=== PATIENT | female | born 1970 | race Caucasian/White ===

== ENCOUNTER 2017-01-08 13:26 | Emergency (ER) | payer OTHER ==
[2017-01-08] MEDS ORDERED: Vistaril 50 MG/ML IM ONE ×2 (13:58→14:16)
[2017-01-08] MEDS ORDERED: TORAdol 30 mg Injection IM ONE (13:59)
--- NOTE | 2017-01-08 14:05 | ERPHSYRPT ---
- History of Present Illness Time Seen by Provider: 01/08/17 13:42 Source: patient Patient Subjective Stated Complaint: PT STATES THAT SHE HAS ARTHRITIS AND THAT SHE HAS BEEN HAVING INCREASED PAIN IN HER LEFT KNEE AND LOWER BACK. STATSE THAT SHE THINKS DUE TO THE PAIN HER BP HAS BEEN RUNNING HIGH THE PAST FEW DAYS. Triage Nursing Assessment: PT ALERT PINK WARM AND DRY RESP EASY NON LABORED SWELLING NOTED TO LEFT KNEE PT UNABLE TO BEAR WEIGHT ON LEFT KNEE. Physician History: CC: high blood pressure Hx: 47 y/o patient of Dr Meyers. She has been seeing Dr Rima De La Cruz and is switching to Dr Marti in January for chronic rheumatoid arthritis. She has HTN. Thinks she takes lisinopril 5mg BID as well as avapro. Her BP has been high. Some headaches, nonspecific. No chest pain. No N/T/W. BP was elevated 180/ 105 at noon so she came to ER. She is not out of any meds. Takes ultram for pain. Knee swelling and pains have been worse. No redness or fevers. Severity: moderate Allergies/Adverse Reactions: No Known Drug Allergies Allergy (Verified 08/18/16 13:40) Home Medications: Celecoxib 100 mg [celeBREX 100 MG] 100 mg PO BID 08/18/16 [History] Pregabalin 50 mg [Lyrica 50MG] 50 mg PO BID 08/18/16 [History] Clonidine HCl 0.1 mg [Catapres 0.1 MG] 0.2 mg BID 01/08/17 [History] Prednisone 20 mg [Deltasone 20 mg] 20 mg BID 01/08/17 [History] Hx Tetanus, Diphtheria Vaccination/Date Given: Yes Hx Influenza Vaccination/Date Given: Yes Hx Pneumococcal Vaccination/Date Given: No Immunizations Up to Date: Yes - Review of Systems Constitutional: No Fever, No Chills Eyes: No Symptoms, No Vision Changes Ears, Nose, & Throat: No Symptoms Respiratory: No Symptoms Cardiac: No Chest Pain Abdominal/Gastrointestinal: No Abdominal Pain, No Nausea, No Vomiting Genitourinary Symptoms: No Symptoms Musculoskeletal: No Symptoms, Joint Pain Skin: No Symptoms, No Rash Neurological: Headache (off and on), No Dizziness, No Focal Weakness, No Parasthesia All Other Systems: Reviewed and Negative - Past Medical History Pertinent Past Medical History: Yes Neurological History: Other ENT History: No Pertinent History Cardiac History: Hypertension Respiratory History: No Pertinent History Endocrine Medical History: No Pertinent History Musculoskeletal History: Rheumatoid Arthritis GI Medical History: Gallbladder Disease History: No Pertinent History Psycho-Social History: Anxiety, Depression Female Reproductive Disorders: Abnormal Uterine Bleeding Other Medical History: LEFT EPIDURAL HEMATOMA HX. RA - Past Surgical History Past Surgical History: Yes Neuro Surgical History: Other Cardiac: No Pertinent History Respiratory: No Pertinent History Gastrointestinal: Cholecystectomy Genitourinary: No Pertinent History Musculoskeletal: No Pertinent History Female Surgical History: Hysterectomy Other Surgical History: BRAIN SURGERY - Social History Smoking Status: Former smoker How long have you smoked: 10 YEARS Exposure to second hand smoke: Yes Alcohol Use: Socially Drug Use: none Patient Lives Alone: No Significant Family History: no pertinent family hx - Female History Hx Last Menstrual Period: HYSTERECTOMY Hx Now: No - Nursing Vital Signs Nursing Vital Signs: Initial Vital Signs Temperature 97.4 F Temperature Source Oral Pulse Rate 86 Respiratory Rate 16 Blood Pressure [Right Arm] 156/80 Pain Intensity 3 - Physical Exam General Appearance: alert Eye Exam: PERRL/EOMI Ears, Nose, Throat Exam: normal ENT inspection, moist mucous membranes Neck Exam: normal inspection, non-tender, supple Respiratory Exam: normal breath sounds, lungs clear Cardiovascular Exam: regular rate/rhythm Gastrointestinal/Abdomen Exam: soft, No tenderness, No distention Back Exam: normal inspection Extremity Exam: other (edema of legs and some swelling in knees worse on left) Neurologic Exam: alert, oriented x 3, cooperative, sensation nml, No motor deficits Skin Exam: warm, dry, No rash SpO2 Interpretation: normal SpO2: 99 Oxygen Delivery: Room Air - Course Nursing assessment & vital signs reviewed: Yes Ordered Tests: Active Orders 24 hr Category Date Time Status CBC W DIFF Stat Lab 01/08/17 14:09 Completed CMP Stat Lab 01/08/17 14:09 Completed Manual Differential NC Stat Lab 01/08/17 14:09 Completed Medication Summary Discontinued Medications Generic Name Dose Route Start Last Admin Trade Name Freq PRN Reason Stop Dose Admin Hydroxyzine HCl 50 mg 01/08/17 13:58 01/08/17 14:35 Vistaril 50 Mg/Ml IM 01/08/17 13:59 50 mg STAT ONE Administration Hydroxyzine HCl Confirm 01/08/17 14:16 Vistaril 50 Mg/Ml Administered 01/08/17 14:17 Dose 50 mg IM .STK-MED ONE Ketorolac Tromethamine 60 mg 01/08/17 13:59 01/08/17 14:26 Toradol 30 Mg Injection IM 01/08/17 14:00 60 mg STAT ONE Administration Ketorolac Tromethamine Confirm 01/08/17 14:16 Toradol 30 Mg Injection Administered 01/08/17 14:17 Dose 60 mg .ROUTE .STK-MED ONE Ketorolac Tromethamine Confirm 01/08/17 14:18 Toradol 30 Mg Injection Administered 01/08/17 14:19 Dose 60 mg .ROUTE .STK-MED ONE Lab/Rad Data: Laboratory Result Diagrams 01/08/17 14:09 01/08/17 14:09 Laboratory Results 01/08/17 01/08/17 Range/Units 14:09 14:09 WBC 11.4 H (4.0-10.5) K/mm3 RBC 4.05 L (4.1-5.4) M/mm3 Hgb 11.3 L (12.0-16.0) gm/dl Hct 36.2 (35-47) % MCV 89.4 (78-100) fl MCH 27.9 (26-32) pg MCHC 31.2 L (32-36) g/dl RDW 15.3 H (11.5-14.0) % Plt Count 243 (150-450) K/mm3 MPV 10.3 H (6-9.5) fl Segmented Neutrophils 85 H (36.0-66.0) % Lymphocytes (Manual) 9 L (24-44) % Monocytes (Manual) 6 (0.0-12.0) % Platelet Estimate NORMAL (NORMAL) Poikilocytosis 1+ Anisocytosis 1+ Sodium 143 (136-145) mEq/L Potassium 4.3 (3.5-5.1) mEq/L Chloride 103 (98-107) mEq/L Carbon Dioxide 28.8 (21-32) mEq/L Anion Gap 15.0 (5-15) MEQ/L BUN 11 (9-20) mg/dL Creatinine 0.84 (0.55-1.30) mg/dl Estimated GFR > 60 ML/MIN Glucose 145 H (70-110) MG/DL Calcium 9.3 (8.5-10.1) mg/dL Total Bilirubin 1.2 H (0.2-1.0) mg/dL AST 9 L (15-37) U/L ALT 18 (12-78) U/L Alkaline Phosphatase 97 (46-116) U/L Serum Total Protein 7.6 (6.4-8.2) gm/dL Albumin 2.9 L (3.4-5.0) g/dL - Progress Progress Note: 01/08/17 15:08 BP improved. Her pain is improved. Advised double dose of lisinopril and follow up with Dr Meyers. Counseled pt/family regarding: diagnosis, need for follow-up - Departure Time of Disposition: 15:09 Departure Disposition: Home Clinical Impression: Hypertension, Rheumatoid arthritis Condition: Stable Critical Care Time: No Referrals: ELIAS MEYERS [Primary Care Provider] - Instructions: Rheumatoid Arthritis, High Blood Pressure Additional Instructions: Double dose of lisinopril. Take your ultram as already prescribed for pain. Follow up this or next week with Dr Meyers. Check Blood Pressure tiwce a day and record in a book.
[2017-01-08] MEDS ORDERED: TORAdol 30 mg Injection ONE ×2 (14:16→14:18)
[2017-01-08 14:21] LABS: Mean Cell Volume 89.4 fl (78-100); Mean Corpuscular Hemoglobin 27.9 pg (26-32); Mean Platelet Volume 10.3 fl (6-9.5); Platelet Count 243 K/mm3 (150-450); Red Blood Count 4.05 M/mm3 (4.1-5.4); Red Cell Distribution Width 15.3 % (11.5-14.0); White Blood Count 11.4 K/mm3 (4.0-10.5)
[2017-01-08 14:30] LABS: ALBUMIN 2.9 g/dL (3.4-5.0); ALKALINE PHOSPHATASE 97 U/L (46-116); BILIRUBIN,TOTAL 1.2 mg/dL (0.2-1.0); BLOOD UREA NITROGEN 11 mg/dL (9-20); CHLORIDE 103 mEq/L (98-107); Carbon Dioxide 28.8 mEq/L (21-32); Glucose 145 MG/DL (70-110); Potassium 4.3 mEq/L (3.5-5.1); SGOT/AST 9 U/L (15-37); SGPT/ALT 18 U/L (12-78); SODIUM 143 mEq/L (136-145); Total Protein 7.6 gm/dL (6.4-8.2)
[2017-01-08 14:54] LABS: Total Cells Counted 100
[2017-01-08 14:55] LABS: ANISOCYTOSIS 1+; Platelet Estimate NORMAL (NORMAL); Poikilocytosis 1+
[2017-01-08 15:13] VITALS: O2SAT 99
[2017-01-08 15:33] VITALS: BP 186/97; PULSE 91
== END 2017-01-08 15:32 | disposition home or self-care (01) ==
LOC: ED 13:26
DX: I10 Essential (primary) hypertension (principal); M06.9 Rheumatoid arthritis, unspecified; R51 Headache; M25.562 Pain in left knee; M54.5 Low back pain; Z79.899 Other long term (current) drug therapy
CPT/HCPCS: 36415; 80053; 85025; 96372; 99283; 99284; J1885; J3410

== ENCOUNTER 2018-10-20 10:55 | Emergency (ER) | payer OTHER ==
--- NOTE | 2018-10-20 11:23 | ERPHSYRPT ---
- History of Present Illness Time Seen by Provider: 10/20/18 11:12 Source: patient Exam Limitations: no limitations Patient Subjective Stated Complaint: Pt states "I used to have high blood pressure but they took me off my meds awhile ago and I have been fine but about 2 days ago my pressure started to go up and I took a couple of my mothers blood pressure pills to see if that would help but it has not." Triage Nursing Assessment: Pt alert and oriented X 3, skin pwd. Pt ambulates with a walker, able to speak in clear full sentences. PT in no apparent respiratory distress. Physician History: The patient is a 48-year-old female with a history of rheumatoid arthritis and hypertension complaining of elevated blood pressure for the past 3 days. Her blood pressures have been greater than 200/100 for 3 days. She used to take metoprolol and lisinopril for blood pressure but has not needed it for the past 3 years. She took some of her mother's blood pressure medicine in attempt to reduce her blood pressure. She has had some pain in her joints due to the rheumatoid arthritis recently. She states she has survey pulsating headache in the back of her head. Her past medical history is significant for hypertension and rheumatoid arthritis. Timing/Duration: day(s) (3), constant Severity: moderate Modifying Factors: Improves With: medication Associated Symptoms: headaches Allergies/Adverse Reactions: No Known Drug Allergies Allergy (Verified 08/18/16 13:40) Home Medications: Oxycodone / APAP 10/325 mg [Oxycodone-Acetaminophen 10-325] 1 tab PO DAILY PRN 10/20/18 [History] Prednisone 10 mg [Deltasone 10 mg] 10 mg PO DAILY 10/20/18 [History] Hx Tetanus, Diphtheria Vaccination/Date Given: Yes Hx Influenza Vaccination/Date Given: No Hx Pneumococcal Vaccination/Date Given: No Immunizations Up to Date: Yes - Review of Systems Constitutional: No Fever, No Chills Eyes: No Symptoms Ears, Nose, & Throat: No Symptoms Respiratory: No Cough, No Dyspnea Cardiac: No Chest Pain, No Edema, No Syncope Abdominal/Gastrointestinal: No Abdominal Pain, No Nausea, No Vomiting, No Diarrhea Genitourinary Symptoms: No Dysuria Musculoskeletal: Arthralgias Skin: No Rash Neurological: Headache Psychological: No Symptoms Endocrine: No Symptoms Hematologic/Lymphatic: No Symptoms Immunological/Allergic: No Symptoms All Other Systems: Reviewed and Negative - Past Medical History Pertinent Past Medical History: Yes Neurological History: Other ENT History: No Pertinent History Cardiac History: Hypertension Respiratory History: No Pertinent History Endocrine Medical History: No Pertinent History Musculoskeletal History: Rheumatoid Arthritis GI Medical History: Gallbladder Disease History: No Pertinent History Psycho-Social History: Anxiety, Depression Female Reproductive Disorders: Abnormal Uterine Bleeding Other Medical History: LEFT EPIDURAL HEMATOMA HX. RA - Past Surgical History Past Surgical History: Yes Neuro Surgical History: Other Cardiac: No Pertinent History Respiratory: No Pertinent History Gastrointestinal: Cholecystectomy Genitourinary: No Pertinent History Musculoskeletal: No Pertinent History Female Surgical History: Hysterectomy Other Surgical History: BRAIN SURGERY - Social History Smoking Status: Current every day smoker How long have you smoked: years Exposure to second hand smoke: Yes Alcohol Use: Socially Drug Use: none Patient Lives Alone: No Significant Family History: no pertinent family hx - Female History Hx Last Menstrual Period: hysterectomy Hx Now: No - Nursing Vital Signs Nursing Vital Signs: Initial Vital Signs Temperature 98.2 F 10/20/18 11:01 Pulse Rate 84 10/20/18 11:01 Respiratory Rate 16 10/20/18 11:01 Blood Pressure 166/106 10/20/18 11:01 O2 Sat by Pulse Oximetry 96 10/20/18 11:01 Pain Scale Pain Intensity 5 - Physical Exam General Appearance: no apparent distress, alert Eye Exam: PERRL/EOMI, eyes nml inspection Ears, Nose, Throat Exam: normal ENT inspection, TMs normal, pharynx normal, moist mucous membranes Neck Exam: normal inspection, non-tender, supple, full range of motion Respiratory Exam: normal breath sounds, lungs clear, No respiratory distress Cardiovascular Exam: regular rate/rhythm, normal heart sounds, normal peripheral pulses Gastrointestinal/Abdomen Exam: soft, normal bowel sounds, No tenderness, No mass Pelvic Exam: not done Rectal Exam: not done Back Exam: normal inspection, normal range of motion, No CVA tenderness, No vertebral tenderness Extremity Exam: normal inspection, normal range of motion, pelvis stable Neurologic Exam: alert, oriented x 3, cooperative, normal mood/affect, nml cerebellar function, nml station & gait, sensation nml, No motor deficits Skin Exam: normal color, warm, dry, No rash Lymphatic Exam: No adenopathy SpO2 Interpretation: normal SpO2: 96 Oxygen Delivery: Room Air - Course EKG Interpreted by Me: RATE, Sinus Rhythm, NORMAL AXIS, NORMAL INTERVALS, NORMAL QRS - Radiology Exams Chest X-ray Interpretation: Reviewed by me, Teleradiologist Report (per Dr Yo), Negative, Other (new lingula subsegmental atelectasis/scarring, no focal infiltrate or consolidation.) - CT Exams Head CT Interpretation: Tele-radiologist Report (Per Dr Yo), Other (no acute; stable left craniotomy; incidental paranasal sinus disease) Ordered Tests: Active Orders 24 hr Category Date Time Status Clean Catch Urine Specimen STAT Care 10/20/18 11:33 Active EKG-ER Only STAT Care 10/20/18 11:33 Active IV Insertion STAT Care 10/20/18 11:33 Active CHEST 2 VIEWS (PA AND LAT) Stat Exams 10/20/18 11:34 Completed HEAD WITHOUT CONTRAST [CT] Stat Exams 10/20/18 11:35 Completed CBC W DIFF Stat Lab 10/20/18 11:50 Completed CMP Stat Lab 10/20/18 11:50 Completed CULTURE,URINE Stat Lab 10/20/18 12:05 Received Manual Differential NC Stat Lab 10/20/18 11:50 Completed TROPONIN Q3H Lab 10/20/18 11:50 Completed TROPONIN Q3H Lab 10/20/18 14:45 Ordered TROPONIN Q3H Lab 10/20/18 17:45 Ordered TROPONIN Q3H Lab 10/20/18 20:45 Ordered TROPONIN Q3H Lab 10/20/18 23:45 Ordered UA W/RFX UR CULTURE Stat Lab 10/20/18 12:05 Completed Urine Triage Profile Stat Lab 10/20/18 12:05 Completed Medication Summary Discontinued Medications Generic Name Dose Route Start Last Admin Trade Name Freq PRN Reason Stop Dose Admin Labetalol HCl 10 mg 10/20/18 11:35 10/20/18 11:58 Trandate 20 Mg/5 Ml Syringe IV 10/20/18 11:36 10 mg STAT ONE Administration Labetalol HCl Confirm 10/20/18 11:58 Trandate 20 Mg/5 Ml Syringe Administered 10/20/18 11:59 Dose 20 mg IV .STK-MED ONE Morphine Sulfate 4 mg 10/20/18 12:32 10/20/18 12:38 Morphine Sulfate 4 Mg Inj IV 10/20/18 12:33 4 mg STAT ONE Administration Morphine Sulfate Confirm 10/20/18 12:37 Morphine Sulfate 4 Mg Inj Administered 10/20/18 12:38 Dose 4 mg .ROUTE .STK-MED ONE Ondansetron HCl 4 mg 10/20/18 12:32 10/20/18 12:38 Zofran 4 Mg/2 Ml Vial IV 10/20/18 12:33 4 mg STAT ONE Administration Ondansetron HCl Confirm 10/20/18 12:37 Zofran 4 Mg/2 Ml Vial Administered 10/20/18 12:38 Dose 4 mg .ROUTE .STK-MED ONE Potassium Chloride 10 meq 10/20/18 13:00 Klor Con 10 Meq PO 10/20/18 13:01 STAT ONE Lab/Rad Data: Laboratory Result Diagrams 10/20/18 11:50 10/20/18 11:50 Laboratory Results 10/20/18 10/20/18 10/20/18 Range/Units 12:05 12:05 11:50 WBC (4.0-10.5) K/mm3 RBC (4.1-5.4) M/mm3 Hgb (12.0-16.0) gm/dl Hct (35-47) % MCV (78-100) fl MCH (26-32) pg MCHC (32-36) g/dl RDW (11.5-14.0) % Plt Count (150-450) K/mm3 MPV (6-9.5) fl Sodium (137-145) mmol/L Potassium (3.5-5.1) mmol/L Chloride (98-107) mmol/L Carbon Dioxide (22-30) mmol/L Anion Gap (5-15) MEQ/L BUN (7-17) mg/dL Creatinine (0.52-1.04) mg/dL Estimated GFR ML/MIN Glucose (74-106) mg/dL Calcium (8.4-10.2) mg/dL Total Bilirubin (0.2-1.3) mg/dL AST (14-36) U/L ALT (0-35) U/L Alkaline Phosphatase (38-126) U/L Troponin I < 0.012 (0.000-0.034) ng/mL Serum Total Protein (6.3-8.2) g/dL Albumin (3.5-5.0) g/dL Urine Color YELLOW (YELLOW) Urine Appearance SLIGHTLY CLOUDY (CLEAR) Urine pH 5.0 (5-6) Ur Specific [place] 1.011 (1.005-1.025) Urine Protein NEGATIVE (Negative) Urine Ketones NEGATIVE (NEGATIVE) Urine Blood SMALL (0-5) Bon/ul Urine Nitrite NEGATIVE (NEGATIVE) Urine Bilirubin NEGATIVE (NEGATIVE) Urine Urobilinogen NEGATIVE (0-1) mg/dL Ur Leukocyte Esterase NEGATIVE (NEGATIVE) Urine WBC (Auto) 6-10 (0-5) /HPF Urine RBC (Auto) 3-5 (0-2) /HPF U Hyaline Cast (Auto) 0-2 (0-2) /LPF U Epithel Cells (Auto) RARE (FEW) /HPF Urine Bacteria (Auto) NONE (NEGATIVE) /HPF Urine Mucus (Auto) SLIGHT (NEGATIVE) /HPF Urine Culture Reflexed YES (NO) Urine Glucose NEGATIVE (NEGATIVE) mg/dL Urine Opiates Level NEGATIVE (NEGATIVE) Ur Methadone NEGATIVE (NEGATIVE) Urine Barbiturates NEGATIVE (NEGATIVE) Ur Phencyclidine (PCP) NEGATIVE (NEGATIVE) Urine Amphetamine NEGATIVE (NEGATIVE) U Benzodiazepine Level NEGATIVE (NEGATIVE) Urine Cocaine NEGATIVE (NEGATIVE) Urine Marijuana (THC) NEGATIVE (NEGATIVE) 10/20/18 10/20/18 Range/Units 11:50 11:50 WBC 16.0 H (4.0-10.5) K/mm3 RBC 4.78 (4.1-5.4) M/mm3 Hgb 13.8 (12.0-16.0) gm/dl Hct 42.4 (35-47) % MCV 88.7 (78-100) fl MCH 28.9 (26-32) pg MCHC 32.5 (32-36) g/dl RDW 14.8 H (11.5-14.0) % Plt Count 253 (150-450) K/mm3 MPV 9.9 H (6-9.5) fl Sodium 141 (137-145) mmol/L Potassium 3.4 L (3.5-5.1) mmol/L Chloride 102 (98-107) mmol/L Carbon Dioxide 26 (22-30) mmol/L Anion Gap 16.6 H (5-15) MEQ/L BUN 17 (7-17) mg/dL Creatinine 0.83 (0.52-1.04) mg/dL Estimated GFR > 60.0 ML/MIN Glucose 183 H (74-106) mg/dL Calcium 9.7 (8.4-10.2) mg/dL Total Bilirubin 1.10 (0.2-1.3) mg/dL AST 15 (14-36) U/L ALT 24 (0-35) U/L Alkaline Phosphatase 108 (38-126) U/L Troponin I (0.000-0.034) ng/mL Serum Total Protein 7.7 (6.3-8.2) g/dL Albumin 4.5 (3.5-5.0) g/dL Urine Color (YELLOW) Urine Appearance (CLEAR) Urine pH (5-6) Ur Specific [place] (1.005-1.025) Urine Protein (Negative) Urine Ketones (NEGATIVE) Urine Blood (0-5) Bon/ul Urine Nitrite (NEGATIVE) Urine Bilirubin (NEGATIVE) Urine Urobilinogen (0-1) mg/dL Ur Leukocyte Esterase (NEGATIVE) Urine WBC (Auto) (0-5) /HPF Urine RBC (Auto) (0-2) /HPF U Hyaline Cast (Auto) (0-2) /LPF U Epithel Cells (Auto) (FEW) /HPF Urine Bacteria (Auto) (NEGATIVE) /HPF Urine Mucus (Auto) (NEGATIVE) /HPF Urine Culture Reflexed (NO) Urine Glucose (NEGATIVE) mg/dL Urine Opiates Level (NEGATIVE) Ur Methadone (NEGATIVE) Urine Barbiturates (NEGATIVE) Ur Phencyclidine (PCP) (NEGATIVE) Urine Amphetamine (NEGATIVE) U Benzodiazepine Level (NEGATIVE) Urine Cocaine (NEGATIVE) Urine Marijuana (THC) (NEGATIVE) - Progress Progress: improved Progress Note: 10/20/18 13:09 Pt given labetalol, MSO4, and zofran. Feels better. 10/20/18 13:10 Elevated WBC due to pt taking prednisone. Counseled pt/family regarding: lab results, diagnosis, need for follow-up, rad results - Departure Time of Disposition: 13:09 Departure Disposition: Home Clinical Impression: HTN (hypertension), Hypokalemia Condition: Stable Critical Care Time: No Referrals: YARELIS CAMPOS MD [Primary Care Provider] - Additional Instructions: You have high blood pressure and mildly low serum potassium. You were given labetalol 20 mg, morphine 4 mg, and Zofran 4 mg by IV. You were also given potassium 10 mEq orally in the ER. Take metoprolol 25 mg 2 times a day. Follow -up with your primary medical doctor next week. Prescriptions: Metoprolol Tartrate 25 mg [Lopressor 25MG Tab] 25 mg PO BID #14 tab
[2018-10-20] MEDS ORDERED: TRANDATE 20 MG/5 ML SYRINGE IV ONE ×2 (11:35→11:58)
[2018-10-20 12:00] LABS: Hematocrit 42.4 % (35-47); Hemoglobin 13.8 gm/dl (12.0-16.0); Mean Cell Volume 88.7 fl (78-100); Mean Corpuscular Hemoglobin 28.9 pg (26-32); Mean Corpuscular Hgb Concent. 32.5 g/dl (32-36); Mean Platelet Volume 9.9 fl (6-9.5); Platelet Count 253 K/mm3 (150-450); Red Blood Count 4.78 M/mm3 (4.1-5.4); Red Cell Distribution Width 14.8 % (11.5-14.0)
[2018-10-20 12:19] LABS: ALBUMIN 4.5 g/dL (3.5-5.0); ALKALINE PHOSPHATASE 108 U/L (38-126); ANION GAP 16.6 MEQ/L (5-15); BLOOD UREA NITROGEN 17 mg/dL (7-17); CHLORIDE 102 mmol/L (98-107); Calcium 9.7 mg/dL (8.4-10.2); Carbon Dioxide 26 mmol/L (22-30); Creatinine 1 0.83 mg/dL (0.52-1.04); Glucose 183 mg/dL (74-106); Potassium 3.4 mmol/L (3.5-5.1); SGOT/AST 15 U/L (14-36); SGPT/ALT 24 U/L (0-35); SODIUM 141 mmol/L (137-145); Total Protein 7.7 g/dL (6.3-8.2)
--- NOTE | 2018-10-20 12:31 | XRAY ---
Indication: High blood pressure. Multiple contiguous axial images obtained through the head without contrast. Comparison: April 19, 2014. Stable left temporal parietal craniotomy. There is now minimal periventricular degenerative micro-ischemia seen bilaterally. Again no acute intracranial hemorrhage, abnormal extra-axial fluid collection, or mass effect. Fourth ventricle is midline without hydrocephalus. Ruby-white matter differentiation preserved. Remaining bony calvarium intact. There is again moderate mucosal thickening of both ethmoid and lesser degree both maxillary sinuses. Mastoid air cells are clear. Impression: Stable left craniotomy. Minimal periventricular degenerative micro-ischemia. No acute intracranial abnormalities. Incidental paranasal sinus disease. CT DI 70.48
[2018-10-20 12:32] LABS: Appearance SLIGHTLY CLOUDY (CLEAR); Bilirubin NEGATIVE (NEGATIVE); Blood SMALL Ery/ul (0-5); Glucose NEGATIVE (NEGATIVE); Ketones NEGATIVE (NEGATIVE); Leukocyte Esterase NEGATIVE (NEGATIVE); Nitrite NEGATIVE (NEGATIVE); Protein,Urine Dip NEGATIVE (Negative); Specific Gravity 1.011 (1.005-1.025); Urobilinogen NEGATIVE mg/dL (0-1)
[2018-10-20] MEDS ORDERED: MORPHINE SULFATE 4 MG INJ IV ONE (12:32)
[2018-10-20] MEDS ORDERED: Zofran 4 MG/2 ML VIAL IV ONE (12:32)
--- NOTE | 2018-10-20 12:35 | XRAY ---
Indication: Hypertension. Comparison: December 16, 2012. PA/lateral chest demonstrates new lingula subsegmental atelectasis/scarring and a few right lung calcified granulomas. No focal infiltrate, consolidation, or large effusion. Heart and mediastinal structures within normal limits. Bony thorax intact with minimal degenerative changes. Impression: Nonacute chest with chronic features.
[2018-10-20] MEDS ORDERED: MORPHINE SULFATE 4 MG INJ ONE (12:37)
[2018-10-20] MEDS ORDERED: Zofran 4 MG/2 ML VIAL ONE (12:37)
[2018-10-20 12:43] LABS: Amphetamine,Urine NEGATIVE (NEGATIVE); Barbiturate,Urine NEGATIVE (NEGATIVE); Benzodiazepine,Urine NEGATIVE (NEGATIVE); Cocaine,Urine NEGATIVE (NEGATIVE); Methadone,Urine NEGATIVE (NEGATIVE); Opiate,Urine NEGATIVE (NEGATIVE); PCP,Urine NEGATIVE (NEGATIVE); THC,Urine NEGATIVE (NEGATIVE)
[2018-10-20] MEDS ORDERED: Klor Con 10 MEQ PO ONE ×2 (13:00→13:18)
[2018-10-20 13:20] VITALS: BP 160/97; PULSE 75; O2SAT 94
[2018-10-20 13:43] LABS: Eosinophil 2 % (0.00-3.0); Lymphocytes 12 % (24-44); Monocyte 3 % (0.0-12.0); Neutrophils 83 % (36.0-66.0); Platelet Estimate NORMAL (NORMAL); Total Cells Counted 100; Toxic Granulation 1+
== END 2018-10-20 13:32 | disposition home or self-care (01) ==
LOC: ED 10:55
DX: I10 Essential (primary) hypertension (principal); E87.6 Hypokalemia; R51 Headache; Z79.899 Other long term (current) drug therapy; Z87.39 Personal history of other diseases of the musculoskeletal system and connective tissue
CPT/HCPCS: 36000; 36415; 70450; 71046; 80053; 80307; 81001; 84484; 85025; 87086; 93005; 93041; 96374; 96375; 99284; J2270; J2405; A9270-GY

== ENCOUNTER 2018-11-29 12:30 | Emergency (ER) | payer OTHER ==
--- NOTE | 2018-11-29 14:05 | ERPHSYRPT ---
- History of Present Illness Time Seen by Provider: 11/29/18 14:00 Source: patient Exam Limitations: no limitations Patient Subjective Stated Complaint: Has rhuematoid arthritis in her left knee but it has hurt more for the past 4 days Triage Nursing Assessment: Pt c/o of left knee pain, hx of rhuematoid arthritis and pain is more severe, non weight bearing, BP 183/98, hips to be replaced in future and then the knees, denies any other problems at this time Physician History: The patient is a 48-year-old female with a history of rheumatoid arthritis complaining of severe left knee pain and swelling that began about one week ago. She denies any trauma. The rheumatoid arthritis tends to affect her left knee more than her right. Her knee has been very warm as well. She is on 20 mg prednisone daily. She has tried ice and ibuprofen without relief. She is unable to walk on it due to severe pain. She was hospitalized 3 years ago for same complaint for IV steroids. Her past medical history is significant for rheumatoid arthritis, hypertension. 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 Method of Injury: unknown Occurred: last week Quality: sharpness Severity of Pain-Max: severe Severity of Pain-Current: severe Lower Extremities Pain: knee: left Modifying Factors: Improves With: pain medication Associated Symptoms: unable to bear weight Allergies/Adverse Reactions: No Known Drug Allergies Allergy (Verified 11/29/18 12:59) Home Medications: Amlodipine Besylate 5 mg PO DAILY 11/29/18 [History] Metoprolol Tartrate 25 mg [Lopressor 25MG Tab] 75 mg PO BID 11/29/18 [ History] Hx Tetanus, Diphtheria Vaccination/Date Given: Yes Hx Influenza Vaccination/Date Given: No Hx Pneumococcal Vaccination/Date Given: No - Review of Systems Constitutional: No Fever, No Chills Eyes: No Symptoms Ears, Nose, & Throat: No Symptoms Respiratory: No Cough, No Dyspnea Cardiac: No Chest Pain, No Edema, No Syncope Abdominal/Gastrointestinal: No Abdominal Pain, No Nausea, No Vomiting, No Diarrhea Genitourinary Symptoms: No Dysuria Musculoskeletal: Joint Pain, Joint Swelling Skin: No Rash Neurological: No Dizziness, No Focal Weakness, No Sensory Changes Psychological: No Symptoms Endocrine: No Symptoms Hematologic/Lymphatic: No Symptoms Immunological/Allergic: No Symptoms All Other Systems: Reviewed and Negative - Past Medical History Pertinent Past Medical History: Yes Neurological History: Other ENT History: No Pertinent History Cardiac History: Hypertension Respiratory History: No Pertinent History Endocrine Medical History: No Pertinent History Musculoskeletal History: Osteoporosis, Rheumatoid Arthritis GI Medical History: Gallbladder Disease History: No Pertinent History Psycho-Social History: Anxiety, Depression Female Reproductive Disorders: Abnormal Uterine Bleeding Other Medical History: LEFT EPIDURAL HEMATOMA HX. RA - Past Surgical History Past Surgical History: Yes Neuro Surgical History: Other Cardiac: No Pertinent History Respiratory: No Pertinent History Gastrointestinal: Cholecystectomy Genitourinary: No Pertinent History Musculoskeletal: No Pertinent History Female Surgical History: Hysterectomy Other Surgical History: BRAIN SURGERY - Social History Smoking Status: Current some day smoker How long have you smoked: years Exposure to second hand smoke: No Alcohol Use: Socially Drug Use: none Patient Lives Alone: No Significant Family History: no pertinent family hx - Female History Hx Now: No (hysterectomy) - Nursing Vital Signs Nursing Vital Signs: Initial Vital Signs Temperature 97.9 F 11/29/18 12:49 Pulse Rate 89 11/29/18 12:49 Blood Pressure 183/98 11/29/18 12:49 O2 Sat by Pulse Oximetry 95 11/29/18 12:49 Pain Scale Pain Intensity 4 - Physical Exam General Appearance: mild distress Eyes, Ears, Nose, Throat Exam: moist mucous membranes Neck Exam: non-tender, supple Cardiovascular/Respiratory Exam: chest non-tender, normal breath sounds, regular rate/rhythm, no respiratory distress Gastrointestinal/Abdominal Exam: non-tender, guarding Back Exam: normal inspection, No vertebral tenderness Hips Exam: bilateral: normal inspection Legs Exam: bilateral leg: normal inspection Knees Exam: right knee: normal inspection, left knee: joint effusion, pain, soft tissue tenderness, swelling, other (warmth) Ankle Exam: bilateral ankle: normal inspection Foot Exam: bilateral foot: normal inspection Neuro/Tendon Exam: normal sensation, normal motor functions Mental Status Exam: alert, oriented x 3, cooperative Skin Exam: normal color, warm, dry SpO2 Interpretation: normal SpO2: 95 Oxygen Delivery: Room Air - Radiology Exams Left Knee X-ray Interpretation: Reviewed by me, Teleradiologist Report (Per Dr Yo), Other (worsening severe degenerative arthritis; suprapatellar effusion ) Ordered Tests: Active Orders 24 hr Category Date Time Status IV Insertion STAT Care 11/29/18 14:11 Active Regular Diet Diet 11/30/18 Breakfast Active KNEE (3 VIEWS) Stat Exams 11/29/18 13:55 Completed BLOOD CULTURE Stat Lab 11/29/18 14:24 Received BMP Stat Lab 11/29/18 14:24 Completed CBC W DIFF Stat Lab 11/29/18 14:11 Completed Lactic Acid Stat Lab 11/29/18 15:08 Completed Uric Acid Stat Lab 11/29/18 14:24 Completed Medication Summary Discontinued Medications Generic Name Dose Route Start Last Admin Trade Name Oniel PRN Reason Stop Dose Admin Hydromorphone HCl 1 mg 11/29/18 14:11 11/29/18 14:33 Hydromorphone 1 Mg/Ml Ampule IV 11/29/18 14:12 1 mg STAT ONE Administration Hydromorphone HCl Confirm 11/29/18 14:28 Hydromorphone 1 Mg/Ml Ampule Administered 11/29/18 14:29 Dose 1 mg .ROUTE .STK-MED ONE Sodium Chloride 1,000 mls @ 999 mls/hr 11/29/18 14:11 11/29/18 16:56 Sodium Chloride 0.9% 1000 Ml IV 11/29/18 15:11 Infused .Q1H1M STA Infusion Sodium Chloride Confirm 11/29/18 14:28 Sodium Chloride 0.9% 1000 Ml Administered 11/29/18 14:29 Dose 1,000 mls @ ud .ROUTE .STK-MED ONE Ketorolac Tromethamine 30 mg 11/29/18 14:11 11/29/18 14:33 Toradol 30 Mg Injection IV 11/29/18 14:12 30 mg STAT ONE Administration Ketorolac Tromethamine Confirm 11/29/18 14:28 Toradol 30 Mg Injection Administered 11/29/18 14:29 Dose 30 mg .ROUTE .STK-MED ONE Ondansetron HCl 4 mg 11/29/18 14:11 11/29/18 14:33 Zofran 4 Mg/2 Ml Vial IV 11/29/18 14:12 4 mg STAT ONE Administration Ondansetron HCl Confirm 11/29/18 14:28 Zofran 4 Mg/2 Ml Vial Administered 11/29/18 14:29 Dose 4 mg .ROUTE .STK-MED ONE Lab/Rad Data: Laboratory Result Diagrams 11/29/18 14:11 11/29/18 14:24 Laboratory Results 11/29/18 11/29/18 11/29/18 Range/Units 15:08 14:24 14:24 WBC (4.0-10.5) K/mm3 RBC (4.1-5.4) M/mm3 Hgb (12.0-16.0) gm/dl Hct (35-47) % MCV (78-100) fl MCH (26-32) pg MCHC (32-36) g/dl RDW (11.5-14.0) % Plt Count (150-450) K/mm3 MPV (6-9.5) fl Gran % (36.0-66.0) % Eos # (Auto) (0-0.5) Absolute Lymphs (auto) (1.0-4.6) Absolute Monos (auto) (0.0-1.3) Lymphocytes % (24.0-44.0) % Monocytes % (0.0-12.0) % Eosinophils % (0.00-5.0) % Basophils % (0.0-0.4) % Absolute Granulocytes (1.4-6.9) Basophils # (0-0.4) Sodium 143 (137-145) mmol/L Potassium 4.0 (3.5-5.1) mmol/L Chloride 105 (98-107) mmol/L Carbon Dioxide 28 (22-30) mmol/L Anion Gap 14.2 (5-15) MEQ/L BUN 18 H (7-17) mg/dL Creatinine 0.87 (0.52-1.04) mg/dL Estimated GFR > 60.0 ML/MIN Glucose 96 (74-106) mg/dL Lactic Acid 0.6 (0.4-2.0) Uric Acid 4.4 (2.6-6.0) mg/dL Calcium 9.3 (8.4-10.2) mg/dL 11/29/18 Range/Units 14:11 WBC 12.2 H (4.0-10.5) K/mm3 RBC 4.42 (4.1-5.4) M/mm3 Hgb 12.7 (12.0-16.0) gm/dl Hct 39.3 (35-47) % MCV 88.9 (78-100) fl MCH 28.7 (26-32) pg MCHC 32.3 (32-36) g/dl RDW 14.1 H (11.5-14.0) % Plt Count 356 (150-450) K/mm3 MPV 10.1 H (6-9.5) fl Gran % 66.1 H (36.0-66.0) % Eos # (Auto) 0.60 H (0-0.5) Absolute Lymphs (auto) 2.26 (1.0-4.6) Absolute Monos (auto) 1.24 (0.0-1.3) Lymphocytes % 18.6 L (24.0-44.0) % Monocytes % 10.2 (0.0-12.0) % Eosinophils % 4.9 (0.00-5.0) % Basophils % 0.2 (0.0-0.4) % Absolute Granulocytes 8.05 H (1.4-6.9) Basophils # 0.03 (0-0.4) Sodium (137-145) mmol/L Potassium (3.5-5.1) mmol/L Chloride (98-107) mmol/L Carbon Dioxide (22-30) mmol/L Anion Gap (5-15) MEQ/L BUN (7-17) mg/dL Creatinine (0.52-1.04) mg/dL Estimated GFR ML/MIN Glucose (74-106) mg/dL Lactic Acid (0.4-2.0) Uric Acid (2.6-6.0) mg/dL Calcium (8.4-10.2) mg/dL - Progress Progress: improved - Departure Time of Disposition: 17:28 Departure Disposition: Home, Transfer (transfer to [facility] per Dr Cartwright) Clinical Impression: Rheumatoid arthritis flare Condition: Stable Critical Care Time: No Referrals: YARELIS CAMPOS MD [Primary Care Provider] -
--- NOTE | 2018-11-29 14:09 | XRAY ---
Indication: Left knee pain. No known injury. Comparison: January 29, 2017. 3 views of the right knee demonstrates progressive worsening advanced tricompartmental degenerative changes again greatest in the medial compartment with new heterotopic ossifications. Stable nonspecific suprapatellar effusion. No other bony, articular, or soft tissue abnormalities.
[2018-11-29] MEDS ORDERED: TORAdol 30 mg Injection IV ONE (14:11)
[2018-11-29] MEDS ORDERED: Hydromorphone 1 mg/ml Ampule IV ONE (14:11)
[2018-11-29] MEDS ORDERED: Sodium Chloride 0.9% 1000 ML 1,000 ML IV STA (14:11)
[2018-11-29] MEDS ORDERED: Zofran 4 MG/2 ML VIAL IV ONE (14:11)
[2018-11-29] MEDS ORDERED: Hydromorphone 1 mg/ml Ampule ONE (14:28)
[2018-11-29] MEDS ORDERED: TORAdol 30 mg Injection ONE (14:28)
[2018-11-29] MEDS ORDERED: Sodium Chloride 0.9% 1000 ML 1,000 ML ONE (14:28)
[2018-11-29] MEDS ORDERED: Zofran 4 MG/2 ML VIAL ONE (14:28)
[2018-11-29 14:47] LABS: BASOPHIL % 0.2 % (0.0-0.4); Basophil (Absolute #) 0.03 (0-0.4); Eosinophil % 4.9 % (0.00-5.0); Granulocyte Absolute (ANC) 8.05 (1.4-6.9); Granulocytes % 66.1 % (36.0-66.0); Hematocrit 39.3 % (35-47); Hemoglobin 12.7 gm/dl (12.0-16.0); Lymphocyte (Absolute #) 2.26 (1.0-4.6); Lymphocytes % 18.6 % (24.0-44.0); Mean Cell Volume 88.9 fl (78-100); Mean Corpuscular Hemoglobin 28.7 pg (26-32); Mean Corpuscular Hgb Concent. 32.3 g/dl (32-36); Mean Platelet Volume 10.1 fl (6-9.5); Monocyte (Absolute #) 1.24 (0.0-1.3); Monocytes % 10.2 % (0.0-12.0); Platelet Count 356 K/mm3 (150-450); Red Blood Count 4.42 M/mm3 (4.1-5.4); Red Cell Distribution Width 14.1 % (11.5-14.0); White Blood Count 12.2 K/mm3 (4.0-10.5)
[2018-11-29 15:01] LABS: ANION GAP 14.2 MEQ/L (5-15); BLOOD UREA NITROGEN 18 mg/dL (7-17); CHLORIDE 105 mmol/L (98-107); Calcium 9.3 mg/dL (8.4-10.2); Carbon Dioxide 28 mmol/L (22-30); Creatinine 1 0.87 mg/dL (0.52-1.04); Glucose 96 mg/dL (74-106); SODIUM 143 mmol/L (137-145)
[2018-11-29 18:43] VITALS: BP 163/85; PULSE 81; O2SAT 96
== END 2018-11-29 18:51 | disposition short-term general hospital (02) ==
LOC: ED 12:30
DX: M06.9 Rheumatoid arthritis, unspecified (principal); M25.562 Pain in left knee; F17.200 Nicotine dependence, unspecified, uncomplicated
CPT/HCPCS: 36415; 73562; 80048; 83605; 84550; 85025; 87040; 96360; 96374; 96375; 99285; J1170; J1885; J2405

== ENCOUNTER 2019-06-13 19:34 | Emergency (ER) | payer OTHER ==
--- NOTE | 2019-06-13 20:33 | ERPHSYRPT ---
- History of Present Illness Time Seen by Provider: 06/13/19 20:20 Source: patient Patient Subjective Stated Complaint: Pt states "I have rheumatoid arthritis and I think I am having a flairup, my left knee is killing me. Also, My right flank is really hurting. I have stage 3 kidney disease and I took a tylenol a couple of days ago, I know I am not supposed to but my head hurt so bad that day I just had to." Triage Nursing Assessment: Pt presented through the front and placed in room 8. Pt alert and oriented X 3, skin pwd Pt ambulates with assistance, pt left knee slightly swollen. Pt in no apparent respiratory distress. Physician History: 49-year-old white female with history is states she is kidney problems arise with complaint right flank pain symptoms going on for several days. She states that she's run out of her Percocet patient without nausea no vomiting she states she's had decreased fluid output. She states she has left knee pain however she has chronic left knee pain and rheumatoid arthritis. Past medical history includes high blood pressure, gallbladder disease, abnormal uterine bleeding, osteoarthritis, rheumatoid arthritis, anxiety, depression, epidural hematoma Past surgical history includes hysterectomy and brain surgery. Timing/Duration: day(s) (2 days) Severity: moderate Associated Symptoms: other (right flank pain, left knee pain), No nausea, No vomiting Allergies/Adverse Reactions: No Known Drug Allergies Allergy (Verified 11/29/18 12:59) Home Medications: Amlodipine Besylate 5 mg PO DAILY 11/29/18 [History] Metoprolol Tartrate 25 mg [Lopressor 25MG Tab] 75 mg PO BID 11/29/18 [ History] Hydroxychloroquine Sulfate [Plaquenil] 200 mg PO DAILY 06/13/19 [History] Leflunomide 20 mg PO DAILY 06/13/19 [History] Hx Tetanus, Diphtheria Vaccination/Date Given: Yes Hx Influenza Vaccination/Date Given: Yes Hx Pneumococcal Vaccination/Date Given: No Immunizations Up to Date: Yes - Review of Systems Constitutional: Malaise, No Fever, No Chills, No Fatigue, No Lethargy, No Night Sweats, No Weakness, No Weight Loss Eyes: No Symptoms Ears, Nose, & Throat: No Symptoms Respiratory: No Cough, No Dyspnea Cardiac: No Chest Pain, No Edema, No Syncope Abdominal/Gastrointestinal: Nausea, Vomiting, No Diarrhea, No Constipation, No Hematemesis, No Hematochezia, No Melena, No Dysphagia, No Appetite Changes Genitourinary Symptoms: Other (decreased urine output), No Dysuria, No Frequency Musculoskeletal: Other (right flank pain, left knee pain) Skin: No Rash Neurological: No Dizziness, No Focal Weakness, No Sensory Changes Psychological: No Symptoms Endocrine: No Symptoms All Other Systems: Reviewed and Negative - Past Medical History Pertinent Past Medical History: Yes Neurological History: Other ENT History: No Pertinent History Cardiac History: Hypertension Respiratory History: No Pertinent History Endocrine Medical History: No Pertinent History Musculoskeletal History: Osteoporosis, Rheumatoid Arthritis GI Medical History: Gallbladder Disease History: No Pertinent History Psycho-Social History: Anxiety, Depression Female Reproductive Disorders: Abnormal Uterine Bleeding Other Medical History: LEFT EPIDURAL HEMATOMA HX. RA - Past Surgical History Past Surgical History: Yes Neuro Surgical History: Other Cardiac: No Pertinent History Respiratory: No Pertinent History Gastrointestinal: Cholecystectomy Genitourinary: No Pertinent History Musculoskeletal: No Pertinent History Female Surgical History: Hysterectomy Other Surgical History: BRAIN SURGERY - Social History Smoking Status: Former smoker How long have you smoked: years Exposure to second hand smoke: Yes Alcohol Use: Socially Drug Use: none Patient Lives Alone: No Significant Family History: no pertinent family hx - Female History Hx Last Menstrual Period: hysterectomy Hx Now: No - Nursing Vital Signs Nursing Vital Signs: Initial Vital Signs Temperature 100.9 F 06/13/19 19:49 Pulse Rate 78 06/13/19 19:49 Respiratory Rate 20 06/13/19 19:49 Blood Pressure 178/101 06/13/19 19:49 O2 Sat by Pulse Oximetry 98 06/13/19 19:49 Pain Scale Pain Intensity 4 - Physical Exam General Appearance: mild distress, alert Eye Exam: PERRL/EOMI, eyes nml inspection Ears, Nose, Throat Exam: normal ENT inspection, TMs normal, pharynx normal, moist mucous membranes Neck Exam: normal inspection, non-tender, supple, full range of motion Respiratory Exam: normal breath sounds, lungs clear, No respiratory distress Cardiovascular Exam: regular rate/rhythm, normal heart sounds, normal peripheral pulses, capillary refill <2 sec Gastrointestinal/Abdomen Exam: soft, normal bowel sounds, No tenderness, No mass Back Exam: CVA tenderness (right flank tenderness) Extremity Exam: other (left knee pain) Neurologic Exam: alert, oriented x 3, cooperative, normal mood/affect, nml cerebellar function, nml station & gait, sensation nml, No motor deficits Skin Exam: normal color, warm, dry, No rash Lymphatic Exam: No adenopathy SpO2 Interpretation: normal (98%) SpO2: 98 - Course Nursing assessment & vital signs reviewed: Yes - CT Exams Abdomen/Pelvis CT Interpretation: Discussed w/radiologist (Ct abdomen and pelvis: Impression: No comparisons. 9 mm nonobstructing right renal stone. 5 mm hepatic cyst. Mild descending/sigmoid diverticulosis. And small fatty umbilical hernia. Normal appendix. Mild multilevel degenerative spondylosis mild levoscoliosis and marked it advanced right hip degenerative joint disease.) Ordered Tests: Active Orders 24 hr Category Date Time Status IV Insertion STAT Care 06/13/19 20:30 Active ABDOMEN AND PELVIS W/0 CONTRAS [CT] Stat Exams 06/13/19 21:46 Taken AMYLASE Stat Lab 06/13/19 20:45 Completed BLOOD CULTURE Stat Lab 06/13/19 21:00 Received CBC W DIFF Stat Lab 06/13/19 20:45 Completed CMP Stat Lab 06/13/19 20:45 Completed CULTURE,URINE Stat Lab 06/13/19 20:45 Received HCG QUALITATIVE,SERUM Stat Lab 06/13/19 20:45 Completed LIPASE Stat Lab 06/13/19 20:45 Completed UA W/RFX UR CULTURE Stat Lab 06/13/19 20:45 Completed Urine Triage Profile Stat Lab 06/13/19 20:45 Completed Medication Summary Generic Name Dose Route Start Last Admin Trade Name Freq PRN Reason Stop Dose Admin Ceftriaxone Sodium/Dextrose 1 g in 50 mls @ 100 mls/hr 06/13/19 22:31 22:48 Rocephin 1 Gm-D5w 50 Ml Bag IV 06/13/19 23:00 100 ml/hr STAT STA 100 mls/hr Administration Morphine Sulfate 4 mg 06/13/19 22:53 Morphine Sulfate 4 Mg Inj IV 06/13/19 22:54 STAT ONE Discontinued Medications Generic Name Dose Route Start Last Admin Trade Name Freq PRN Reason Stop Dose Admin Sodium Chloride 1,000 mls @ 999 mls/hr 06/13/19 20:30 06/13/19 22:22 Sodium Chloride 0.9% 1000 Ml IV 06/13/19 21:30 Infused .Q1H1M STA Infusion Sodium Chloride Confirm 06/13/19 20:34 Sodium Chloride 0.9% 1000 Ml Administered 06/13/19 20:35 Dose 1,000 mls @ ud .ROUTE .STK-MED ONE Ceftriaxone Sodium/Dextrose Confirm 06/13/19 22:41 Rocephin 1 Gm-D5w 50 Ml Bag Administered 06/13/19 22:42 Dose 1 g in 50 mls @ ud IV .STK-MED ONE Methylprednisolone Sodium Succinate 125 mg 06/13/19 22:47 Solu-Medrol 125 Mg IV 06/13/19 22:48 STAT ONE Morphine Sulfate 4 mg 06/13/19 20:54 06/13/19 21:20 Morphine Sulfate 4 Mg Inj IV 06/13/19 20:55 4 mg STAT ONE Administration Morphine Sulfate Confirm 06/13/19 21:15 Morphine Sulfate 4 Mg Inj Administered 06/13/19 21:16 Dose 4 mg .ROUTE .STK-MED ONE Ondansetron HCl 4 mg 06/13/19 20:54 06/13/19 21:17 Zofran 4 Mg/2 Ml Vial IV 06/13/19 20:55 4 mg STAT ONE Administration Ondansetron HCl Confirm 06/13/19 21:14 Zofran 4 Mg/2 Ml Vial Administered 06/13/19 21:15 Dose 4 mg .ROUTE .STK-MED ONE Lab/Rad Data: Laboratory Result Diagrams 06/13/19 20:45 06/13/19 20:45 Laboratory Results 06/13/19 06/13/19 06/13/19 Range/Units 20:45 20:45 20:45 WBC (4.0-10.5) K/mm3 RBC (4.1-5.4) M/mm3 Hgb (12.0-16.0) gm/dl Hct (35-47) % MCV (78-100) fl MCH (26-32) pg MCHC (32-36) g/dl RDW (11.5-14.0) % Plt Count (150-450) K/mm3 MPV (6-9.5) fl Gran % (36.0-66.0) % Eos # (Auto) (0-0.5) Absolute Lymphs (auto) (1.0-4.6) Absolute Monos (auto) (0.0-1.3) Lymphocytes % (24.0-44.0) % Monocytes % (0.0-12.0) % Eosinophils % (0.00-5.0) % Basophils % (0.0-0.4) % Absolute Granulocytes (1.4-6.9) Basophils # (0-0.4) Sodium (137-145) mmol/L Potassium (3.5-5.1) mmol/L Chloride (98-107) mmol/L Carbon Dioxide (22-30) mmol/L Anion Gap (5-15) MEQ/L BUN (7-17) mg/dL Creatinine (0.52-1.04) mg/dL Estimated GFR ML/MIN Glucose (74-106) mg/dL Calcium (8.4-10.2) mg/dL Total Bilirubin (0.2-1.3) mg/dL AST (14-36) U/L ALT (0-35) U/L Alkaline Phosphatase (38-126) U/L Serum Total Protein (6.3-8.2) g/dL Albumin (3.5-5.0) g/dL Amylase (30-110) U/L Lipase (23-300) U/L Serum , Qual NEGATIVE (Negative) Urine Color YELLOW (YELLOW) Urine Appearance SLIGHTLY CLOUDY (CLEAR) Urine pH 6.0 (5-6) Ur Specific Wayne 1.016 (1.005-1.025) Urine Protein NEGATIVE (Negative) Urine Ketones NEGATIVE (NEGATIVE) Urine Blood NEGATIVE (0-5) Bon/ul Urine Nitrite NEGATIVE (NEGATIVE) Urine Bilirubin NEGATIVE (NEGATIVE) Urine Urobilinogen NEGATIVE (0-1) mg/dL Ur Leukocyte Esterase TRACE (NEGATIVE) Urine WBC (Auto) 16-25 (0-5) /HPF Urine RBC (Auto) 3-5 (0-2) /HPF U Hyaline Cast (Auto) 0-2 (0-2) /LPF U Epithel Cells (Auto) MANY (FEW) /HPF Urine Bacteria (Auto) FEW (NEGATIVE) /HPF Urine Mucus (Auto) SLIGHT (NEGATIVE) /HPF Urine Culture Reflexed YES (NO) Urine Glucose NEGATIVE (NEGATIVE) mg/dL Urine Opiates Level NEGATIVE (NEGATIVE) Ur Methadone NEGATIVE (NEGATIVE) Urine Barbiturates NEGATIVE (NEGATIVE) Ur Phencyclidine (PCP) NEGATIVE (NEGATIVE) Urine Amphetamine NEGATIVE (NEGATIVE) U Benzodiazepine Level NEGATIVE (NEGATIVE) Urine Cocaine NEGATIVE (NEGATIVE) Urine Marijuana (THC) NEGATIVE (NEGATIVE) 06/13/19 06/13/19 Range/Units 20:45 20:45 WBC 8.3 (4.0-10.5) K/mm3 RBC 4.54 (4.1-5.4) M/mm3 Hgb 13.5 (12.0-16.0) gm/dl Hct 40.0 (35-47) % MCV 88.1 (78-100) fl MCH 29.7 (26-32) pg MCHC 33.8 (32-36) g/dl RDW 13.5 (11.5-14.0) % Plt Count 312 (150-450) K/mm3 MPV 10.3 H (6-9.5) fl Gran % 53.4 (36.0-66.0) % Eos # (Auto) 0.64 H (0-0.5) Absolute Lymphs (auto) 2.15 (1.0-4.6) Absolute Monos (auto) 1.04 (0.0-1.3) Lymphocytes % 25.9 (24.0-44.0) % Monocytes % 12.5 H (0.0-12.0) % Eosinophils % 7.7 H (0.00-5.0) % Basophils % 0.5 (0.0-0.4) % Absolute Granulocytes 4.44 (1.4-6.9) Basophils # 0.04 (0-0.4) Sodium 143 (137-145) mmol/L Potassium 3.7 (3.5-5.1) mmol/L Chloride 108 H (98-107) mmol/L Carbon Dioxide 26 (22-30) mmol/L Anion Gap 11.9 (5-15) MEQ/L BUN 13 (7-17) mg/dL Creatinine 0.71 (0.52-1.04) mg/dL Estimated GFR > 60.0 ML/MIN Glucose 93 (74-106) mg/dL Calcium 9.9 (8.4-10.2) mg/dL Total Bilirubin 0.70 (0.2-1.3) mg/dL AST 18 (14-36) U/L ALT 28 (0-35) U/L Alkaline Phosphatase 110 (38-126) U/L Serum Total Protein 7.7 (6.3-8.2) g/dL Albumin 4.2 (3.5-5.0) g/dL Amylase 64 (30-110) U/L Lipase 97 (23-300) U/L Serum , Qual (Negative) Urine Color (YELLOW) Urine Appearance (CLEAR) Urine pH (5-6) Ur Specific Wayne (1.005-1.025) Urine Protein (Negative) Urine Ketones (NEGATIVE) Urine Blood (0-5) Bon/ul Urine Nitrite (NEGATIVE) Urine Bilirubin (NEGATIVE) Urine Urobilinogen (0-1) mg/dL Ur Leukocyte Esterase (NEGATIVE) Urine WBC (Auto) (0-5) /HPF Urine RBC (Auto) (0-2) /HPF U Hyaline Cast (Auto) (0-2) /LPF U Epithel Cells (Auto) (FEW) /HPF Urine Bacteria (Auto) (NEGATIVE) /HPF Urine Mucus (Auto) (NEGATIVE) /HPF Urine Culture Reflexed (NO) Urine Glucose (NEGATIVE) mg/dL Urine Opiates Level (NEGATIVE) Ur Methadone (NEGATIVE) Urine Barbiturates (NEGATIVE) Ur Phencyclidine (PCP) (NEGATIVE) Urine Amphetamine (NEGATIVE) U Benzodiazepine Level (NEGATIVE) Urine Cocaine (NEGATIVE) Urine Marijuana (THC) (NEGATIVE) - Progress Progress: improved Progress Note: 06/13/19 22:26 Patient's right lower extremity examined. Patient with chronic enlargement of the right knee pain with movement of the right knee. Patient denies any injury right knee is not hot or warm to touch. Patient does state that she is on prednisone 10 mg a day. Patient with right flank pain she does have a urinary tract infection however will obtain CT to rule out urolithiasis. BUN and creatinine within normal limits despite patient's history of renal problems. Will await CT of the abdomen consider Solu-Medrol 125 IV Rocephin IV and home on Bactrim. Patient has a pain quality control head/community service director she will need to obtain further narcotic analgesia from him. 06/13/19 22:48 Patient does not feel like her left knee is changed from previous feels like this is her chronic arthritis with a flare. She denies any injury. Will give patient Solu-Medrol 125 mg IV patient does have a urinary tract infection. Patient with a 9 mm nonobstructing renal stone on the right. Will give patient an additional 4 mg of morphine. Patient has prednisone at home which is prescribed by her Rheumologist she can continue taking. Patient will need to. Contact her community service director/pain quality control head for continued narcotic analgesia. Patient is advised to followup with her family DrJolene or her renal DrJolene or Dr. Hunt. today concerning her right kidney stone. - Departure Departure Disposition: Home Clinical Impression: Right flank pain Rheumatoid arthritis Qualifiers: Rheumatoid arthritis location: knee Rheumatoid factor presence: unspecified presence Laterality: left Qualified Code(s): M06.9 - Rheumatoid arthritis, unspecified Left knee pain Qualifiers: Chronicity: unspecified Qualified Code(s): M25.562 - Pain in left knee Urolithiasis Qualifiers: Urinary calculus location: kidney Qualified Code(s): N20.0 - Calculus of kidney UTI (urinary tract infection) Qualifiers: Urinary tract infection type: site unspecified Hematuria presence: with hematuria Qualified Code(s): N39.0 - Urinary tract infection, site not specified Condition: Fair Critical Care Time: No Referrals: YARELIS CAMPOS MD [Primary Care Provider] - RUBENS HUNT [COURTESY STAFF] - Instructions: Kidney Stones (DC), Flank Pain Additional Instructions: Return home. Plenty of fluids. Prednisone as prescribed by your community service director. Contact your pain quality control head/community service director for narcotic analgesia. Followup with your family doctor/urologist/ concerning your right kidney stone Bactrim as prescribed. Return for acute distress or for severe symptoms. Prescriptions: Smz/Tmp Ds Tablet [Bactrim Ds Tablet] 1 tab PO Q12H #20 tablet
[2019-06-13] MEDS ORDERED: Sodium Chloride 0.9% 1000 ML 1,000 ML ONE (20:34)
[2019-06-13] MEDS: Sodium Chloride 0.9% 1000 ML 1,000 ML IV STA (20:46)
[2019-06-13] MEDS ORDERED: Zofran 4 MG/2 ML VIAL ONE (21:14)
[2019-06-13 21:15] LABS: BASOPHIL % 0.5 % (0.0-0.4); Basophil (Absolute #) 0.04 (0-0.4); Eosinophil % 7.7 % (0.00-5.0); Eosinophil (Absolute #) 0.64 (0-0.5); Granulocyte Absolute (ANC) 4.44 (1.4-6.9); Granulocytes % 53.4 % (36.0-66.0); Hemoglobin 13.5 gm/dl (12.0-16.0); Lymphocyte (Absolute #) 2.15 (1.0-4.6); Lymphocytes % 25.9 % (24.0-44.0); Mean Cell Volume 88.1 fl (78-100); Mean Corpuscular Hemoglobin 29.7 pg (26-32); Mean Corpuscular Hgb Concent. 33.8 g/dl (32-36); Mean Platelet Volume 10.3 fl (6-9.5); Monocyte (Absolute #) 1.04 (0.0-1.3); Monocytes % 12.5 % (0.0-12.0); Platelet Count 312 K/mm3 (150-450); Red Blood Count 4.54 M/mm3 (4.1-5.4); Red Cell Distribution Width 13.5 % (11.5-14.0); White Blood Count 8.3 K/mm3 (4.0-10.5)
[2019-06-13] MEDS ORDERED: MORPHINE SULFATE 4 MG INJ ONE ×2 (21:15→23:05)
[2019-06-13 21:16] LABS: Appearance SLIGHTLY CLOUDY (CLEAR); Bacteria FEW /HPF (NEGATIVE); Bilirubin NEGATIVE (NEGATIVE); Blood NEGATIVE Ery/ul (0-5); Epithelial Cells MANY /HPF (FEW); Glucose NEGATIVE (NEGATIVE); Hyaline Casts 0-2 /LPF (0-2); Ketones NEGATIVE (NEGATIVE); Leukocyte Esterase TRACE (NEGATIVE); Mucus SLIGHT /HPF (NEGATIVE); Nitrite NEGATIVE (NEGATIVE); Protein,Urine Dip NEGATIVE (Negative); Specific Gravity 1.016 (1.005-1.025); Urobilinogen NEGATIVE mg/dL (0-1)
[2019-06-13] MEDS: Zofran 4 MG/2 ML VIAL IV ONE (21:17)
[2019-06-13 21:19] LABS: Amphetamine,Urine NEGATIVE (NEGATIVE); Barbiturate,Urine NEGATIVE (NEGATIVE); Benzodiazepine,Urine NEGATIVE (NEGATIVE); Cocaine,Urine NEGATIVE (NEGATIVE); Methadone,Urine NEGATIVE (NEGATIVE); Opiate,Urine NEGATIVE (NEGATIVE); PCP,Urine NEGATIVE (NEGATIVE); THC,Urine NEGATIVE (NEGATIVE)
[2019-06-13] MEDS: MORPHINE SULFATE 4 MG INJ IV ONE ×2 (21:20→23:06)
[2019-06-13 21:27] LABS: ALBUMIN 4.2 g/dL (3.5-5.0); ALKALINE PHOSPHATASE 110 U/L (38-126); AMYLASE 64 U/L (30-110); ANION GAP 11.9 MEQ/L (5-15); BLOOD UREA NITROGEN 13 mg/dL (7-17); CHLORIDE 108 mmol/L (98-107); Calcium 9.9 mg/dL (8.4-10.2); Carbon Dioxide 26 mmol/L (22-30); Creatinine 1 0.71 mg/dL (0.52-1.04); Glucose 93 mg/dL (74-106); Potassium 3.7 mmol/L (3.5-5.1); SGOT/AST 18 U/L (14-36); SGPT/ALT 28 U/L (0-35); SODIUM 143 mmol/L (137-145); Total Protein 7.7 g/dL (6.3-8.2)
[2019-06-13] MEDS ORDERED: ROCEPHIN 1 Gm-D5w 50 ml Bag** 1 G/50 ML IVPB IV ONE (22:41)
[2019-06-13] MEDS: ROCEPHIN 1 Gm-D5w 50 ml Bag** 1 G/50 ML IVPB IV STA (22:48)
[2019-06-13] MEDS ORDERED: solu-MEDROL 125 MG ONE (23:05)
[2019-06-13] MEDS: solu-MEDROL 125 MG IV ONE (23:07)
[2019-06-13 23:15] VITALS: BP 153/97; PULSE 81; O2SAT 97
--- NOTE | 2019-06-14 08:43 | XRAY ---
Indication: Right flank pain. Fever and difficulty urinating. History stage III chronic kidney disease. Multiple contiguous axial images obtained through the abdomen and pelvis without contrast using renal stone protocol. Comparison: None Lung bases demonstrates a few subcentimeter bilateral calcified nodules. 7 mm left posterior gutter noncalcified nodule probably granulomatous. No infiltrate or effusion. Heart is not enlarged. There is a 9 mm inferior right renal calculus without hydronephrosis or hydroureter. 1 cm left lower renal exophytic cyst. Urinary bladder is minimally distended without calculus. Noncontrasted stomach and bowel loops appear nonobstructed. Normal appendix. Mild scattered descending and sigmoid colonic diverticulosis. No free fluid/air. 5 mm peripheral right lobe hepatic cyst. Previous cholecystectomy and hysterectomy. Remaining liver, pancreas, spleen, adrenal glands, kidneys, ureters, and bladder appear unremarkable for noncontrast exam. Minimal aortoiliac calcifications without AAA. Osseous structures demonstrates mild multilevel degenerative spondylosis and tiny Schmorl nodes. Also mild levoscoliosis centered at L3 and markedly advanced right hip degenerative arthropathy. Small fatty umbilical hernia. Impression: 1. Small nonobstructing right renal calculus and small left renal exophytic cyst. 2. Incidental colonic diverticulosis, tiny hepatic cyst, evidence for old granulomatous disease, fatty umbilical hernia, multilevel degenerative spondylosis, scoliosis, and markedly advanced right hip degenerative arthropathy. CT DI 23.68
== END 2019-06-13 23:28 | disposition home or self-care (01) ==
LOC: ED 19:34
DX: R10.9 Unspecified abdominal pain (principal); M06.9 Rheumatoid arthritis, unspecified; M25.562 Pain in left knee; N20.0 Calculus of kidney; N39.0 Urinary tract infection, site not specified; I12.9 Hypertensive chronic kidney disease with stage 1 through stage 4 chronic kidney disease, or unspecified chronic kidney disease; N18.3 Chronic kidney disease, stage 3 (moderate); Z79.899 Other long term (current) drug therapy
CPT/HCPCS: 36000; 36415; 74176; 80053; 80307; 81001; 81025; 82150; 83690; 85025; 87040; 87077; 87086; 87186; 96360; 96365; 96374; 96375; 96376; 99284; J0696; J2270; J2405; J2930

== ENCOUNTER 2020-07-16 13:09 | Emergency (ER) | payer OTHER ==
[2020-07-16 13:24] VITALS: BP 143/82
[2020-07-16 14:04] LABS: Absolute Neutrophil Ct (ANC) 9.87 (1.4-6.9); BASOPHIL % 0.2 % (0.0-0.4); Basophil (Absolute #) 0.03 (0-0.4); Eosinophil % 3.4 % (0.00-5.0); Eosinophil (Absolute #) 0.47 (0-0.5); Hematocrit 38.1 % (35-47); Hemoglobin 11.8 gm/dl (12.0-16.0); Lymphocyte (Absolute #) 2.43 (1.0-4.6); Lymphocytes % 17.4 % (24.0-44.0); Mean Cell Volume 89.4 fl (78-100); Mean Corpuscular Hemoglobin 27.7 pg (26-32); Mean Platelet Volume 9.6 fl (7.5-11.0); Monocytes % 8.6 % (0.0-12.0); Neutrophil % 70.4 % (36.0-66.0); Platelet Count 271 K/mm3 (150-450); Red Blood Count 4.26 M/mm3 (4.1-5.4); Red Cell Distribution Width 14.9 % (11.5-14.0)
[2020-07-16 14:06] LABS: Appearance CLEAR (CLEAR); Bilirubin NEGATIVE (NEGATIVE); Blood NEGATIVE Ery/ul (0-5); Epithelial Cells RARE /HPF (FEW); Glucose NEGATIVE (NEGATIVE); Ketones NEGATIVE (NEGATIVE); Leukocyte Esterase NEGATIVE (NEGATIVE); Mucus SLIGHT /HPF (NEGATIVE); Nitrite NEGATIVE (NEGATIVE); Protein,Urine Dip 30 (Negative); Specific Gravity 1.018 (1.005-1.025); Urobilinogen NEGATIVE mg/dL (0-1); WBC 0-2 /HPF (0-5)
--- NOTE | 2020-07-16 14:29 | ERPHSYRPT ---
- History of Present Illness Time Seen by Provider: 07/16/20 13:23 Source: patient, EMS Exam Limitations: no limitations Patient Subjective Stated Complaint: pt here for one incontient stool at home, she states when that happened her daughter got scared and called an ambulance becasue she had a stroke a 06/19. left her weak on right side Triage Nursing Assessment: pt arrived per ambulance, she is alert, face mask in place, states she does not need to be here that she is fine, she states that she was unable to make it to the bathroom due to her weakness Physician History: 50 years old female with history of hypertension, hyperlipidemia, tobacco abuse, drug abuse, recent stroke with right-sided residual weakness is brought in the ER by EMS with large stool incontinence. Patient reports she woke up this morning, had urge to go to the bathroom although she could not make it to the bathroom and lost control on the bowel. She did not have a urinary incontinence. She denies any numbness tingling or any new weakness in lower extremities except for right which she has from previous stroke. Denies any abdominal pain nausea vomiting or diarrhea. It was a normal bowel movement. Her daughter got scared and made her come to the ER as she thought she might have another episode of stroke. Patient is very upset, in tears as she did not wanted to be in the ER for this. Timing/Duration: today, sudden, improved Severity: mild Associated Symptoms: denies symptoms Allergies/Adverse Reactions: No Known Drug Allergies Allergy (Verified 07/16/20 13:24) Home Medications: Amlodipine Besylate 10 mg PO DAILY 11/29/18 [History] Hydroxychloroquine Sulfate [Plaquenil] 200 mg PO DAILY 06/13/19 [History] Leflunomide 20 mg PO DAILY 06/13/19 [History] Acetaminophen 325 mg [Tylenol 325 mg] 650 mg PO Q4HPRN PRN 07/16/20 [History] Atorvastatin Calcium 40 mg PO HS 07/16/20 [History] Carvedilol 12.5 mg [Coreg 12.5 mg] 12.5 mg PO BID 07/16/20 [History] Diphenhydramine HCl 25 mg PO Q6HPRN PRN 07/16/20 [History] Hydrochlorothiazide 25 mg [hydroDIURIL 25 MG] 25 mg PO DAILY 07/16/20 [History] Lisinopril 20 mg [Zestril 20 MG] 20 mg PO DAILY 07/16/20 [History] Lorazepam 0.5 mg [Ativan 0.5 MG] 0.5 mg PO Q6HPRN PRN 07/16/20 [History] Prednisone 10 mg [Deltasone 10 mg] 10 mg PO DAILY 07/16/20 [History] Tramadol HCl 50 mg [Ultram 50 mg] 50 mg PO Q6HPRN PRN 07/16/20 [History] Hx Tetanus, Diphtheria Vaccination/Date Given: Yes Hx Influenza Vaccination/Date Given: Yes Hx Pneumococcal Vaccination/Date Given: No Immunizations Up to Date: Yes Travel Risk - International Travel Have you traveled outside of the country in past 3 weeks: No - Coronavirus Screening Are you exhibiting any of the following symptoms?: No Close contact with a COVID-19 positive Pt in past 14-21 Days: No - Review of Systems Constitutional: No Symptoms Eyes: No Symptoms Ears, Nose, & Throat: No Symptoms Respiratory: No Symptoms Cardiac: No Symptoms Abdominal/Gastrointestinal: No Symptoms Genitourinary Symptoms: No Symptoms Skin: No Symptoms Psychological: Anxiety Endocrine: No Symptoms Hematologic/Lymphatic: No Symptoms Immunological/Allergic: No Symptoms - Past Medical History Pertinent Past Medical History: Yes Neurological History: Stroke, Other ENT History: No Pertinent History Cardiac History: Hypertension Respiratory History: No Pertinent History Endocrine Medical History: No Pertinent History Musculoskeletal History: Osteoporosis, Rheumatoid Arthritis GI Medical History: Gallbladder Disease History: No Pertinent History Psycho-Social History: Anxiety, Depression Female Reproductive Disorders: Abnormal Uterine Bleeding Other Medical History: LEFT EPIDURAL HEMATOMA HX. RA - Past Surgical History Past Surgical History: Yes Neuro Surgical History: Other Cardiac: No Pertinent History Respiratory: No Pertinent History Gastrointestinal: Cholecystectomy Genitourinary: No Pertinent History Musculoskeletal: No Pertinent History Female Surgical History: Hysterectomy Other Surgical History: BRAIN SURGERY - Social History Smoking Status: Former smoker How long have you smoked: years Exposure to second hand smoke: No Alcohol Use: Socially Drug Use: none Patient Lives Alone: No Significant Family History: no pertinent family hx - Female History Hx Last Menstrual Period: hyester Hx Now: No - Nursing Vital Signs Nursing Vital Signs: Initial Vital Signs Temperature 98.3 F 07/16/20 13:13 Pulse Rate 83 07/16/20 13:13 Respiratory Rate 18 07/16/20 13:13 Blood Pressure 143/82 07/16/20 13:13 O2 Sat by Pulse Oximetry 99 07/16/20 13:13 Pain Scale Pain Intensity 8 - Physical Exam General Appearance: no apparent distress, alert Eye Exam: PERRL/EOMI, eyes nml inspection Ears, Nose, Throat Exam: normal ENT inspection, pharynx normal Neck Exam: normal inspection, non-tender, supple, full range of motion Respiratory Exam: normal breath sounds, lungs clear Cardiovascular Exam: regular rate/rhythm, normal heart sounds Gastrointestinal/Abdomen Exam: soft, normal bowel sounds Back Exam: normal inspection, normal range of motion Extremity Exam: normal inspection, normal range of motion Neurologic Exam: alert, oriented x 3, cooperative, varnish maker II-XII nml as tested, normal mood/affect, nml cerebellar function, sensation nml, motor deficits (Right upper and lower extremities) Skin Exam: normal color SpO2 Interpretation: normal SpO2: 99 O2 Delivery: Room Air - Course Nursing assessment & vital signs reviewed: Yes Ordered Tests: Active Orders 24 hr Category Date Time Status CBC W DIFF Stat Lab 07/16/20 13:43 Completed CMP Stat Lab 07/16/20 14:00 Completed UA W/RFX UR CULTURE Stat Lab 07/16/20 13:55 Completed Lab/Rad Data: Laboratory Result Diagrams 07/16/20 13:43 07/16/20 14:00 Laboratory Results 07/16/20 07/16/20 07/16/20 Range/Units 14:00 13:55 13:43 WBC 14.0 H (4.0-10.5) K/mm3 RBC 4.26 (4.1-5.4) M/mm3 Hgb 11.8 L (12.0-16.0) gm/dl Hct 38.1 (35-47) % MCV 89.4 (78-100) fl MCH 27.7 (26-32) pg MCHC 31.0 L (32-36) g/dl RDW 14.9 H (11.5-14.0) % Plt Count 271 (150-450) K/mm3 MPV 9.6 (7.5-11.0) fl Gran % 70.4 H (36.0-66.0) % Eos # (Auto) 0.47 (0-0.5) Absolute Lymphs (auto) 2.43 (1.0-4.6) Absolute Monos (auto) 1.20 (0.0-1.3) Lymphocytes % 17.4 L (24.0-44.0) % Monocytes % 8.6 (0.0-12.0) % Eosinophils % 3.4 (0.00-5.0) % Basophils % 0.2 (0.0-0.4) % Absolute Granulocytes 9.87 H (1.4-6.9) Basophils # 0.03 (0-0.4) Sodium 140 (137-145) mmol/L Potassium 3.1 L (3.5-5.1) mmol/L Chloride 104 (98-107) mmol/L Carbon Dioxide 30 (22-30) mmol/L Anion Gap 9.1 (5-15) MEQ/L BUN 20 H (7-17) mg/dL Creatinine 0.82 (0.52-1.04) mg/dL Estimated GFR > 60.0 ML/MIN Glucose 97 (74-106) mg/dL Calcium 9.3 (8.4-10.2) mg/dL Total Bilirubin 1.10 (0.2-1.3) mg/dL AST 17 (14-36) U/L ALT 20 (0-35) U/L Alkaline Phosphatase 97 (38-126) U/L Serum Total Protein 7.3 (6.3-8.2) g/dL Albumin 4.1 (3.5-5.0) g/dL Urine Color YELLOW (YELLOW) Urine Appearance CLEAR (CLEAR) Urine pH 6.0 (5-6) Ur Specific [place] 1.018 (1.005-1.025) Urine Protein 30 (Negative) Urine Ketones NEGATIVE (NEGATIVE) Urine Blood NEGATIVE (0-5) Bon/ul Urine Nitrite NEGATIVE (NEGATIVE) Urine Bilirubin NEGATIVE (NEGATIVE) Urine Urobilinogen NEGATIVE (0-1) mg/dL Ur Leukocyte Esterase NEGATIVE (NEGATIVE) Urine WBC (Auto) 0-2 (0-5) /HPF Urine RBC (Auto) NONE (0-2) /HPF U Epithel Cells (Auto) RARE (FEW) /HPF Urine Bacteria (Auto) NONE (NEGATIVE) /HPF Urine Mucus (Auto) SLIGHT (NEGATIVE) /HPF Urine Culture Reflexed NO (NO) Urine Glucose NEGATIVE (NEGATIVE) mg/dL - Progress Progress: improved Progress Note: 50 years old is evaluated for her inability to make to the bathroom to have a bowel movement but rather her fecal urgency. He has good rectal tone and sensation in the perianal area. Negative neuro exam in lower extremities except for right lower extremity which she has from previous stroke. No cauda equina's symptoms. I have done baseline labs with a white count of 14, grossly unremarkable chemistries for mild hypokalemia for which she is given oral replacement. Nonfocal neuro exam otherwise except for right-sided which is there from previous stroke. No UTI. No abdominal tenderness. Do not think she needs any further work-up and is stable for discharge with outpatient follow- up. Signs symptoms of worsening needing return to ER which she seems understanding. 07/16/20 14:46 - Departure Departure Disposition: Home Clinical Impression: Fecal urgency, Hypokalemia Condition: Stable Critical Care Time: No Referrals: YARELIS CAMPOS MD [Primary Care Provider] - Follow Up with PCP/3 days Instructions: Fecal Incontinence, Hypokalemia (DC) Additional Instructions: Follow-up with primary care for reevaluation. Return to ER for any worsening. Prescriptions: Potassium Chloride [K-Dur] 20 meq PO DAILY #5 [email or web address]
[2020-07-16 14:38] LABS: ALBUMIN 4.1 g/dL (3.5-5.0); ALKALINE PHOSPHATASE 97 U/L (38-126); ANION GAP 9.1 MEQ/L (5-15); BLOOD UREA NITROGEN 20 mg/dL (7-17); CHLORIDE 104 mmol/L (98-107); Calcium 9.3 mg/dL (8.4-10.2); Carbon Dioxide 30 mmol/L (22-30); Creatinine 1 0.82 mg/dL (0.52-1.04); Glucose 97 mg/dL (74-106); Potassium 3.1 mmol/L (3.5-5.1); SGOT/AST 17 U/L (14-36); SGPT/ALT 20 U/L (0-35); SODIUM 140 mmol/L (137-145); Total Protein 7.3 g/dL (6.3-8.2)
[2020-07-16] MEDS ORDERED: Klor Con 10 MEQ PO ONE ×2 (14:45→14:53)
[2020-07-16 16:03] VITALS: PULSE 70; O2SAT 97
== END 2020-07-16 16:04 | disposition home or self-care (01) ==
LOC: ED 13:09
DX: R15.2 Fecal urgency (principal); E87.6 Hypokalemia
CPT/HCPCS: 36415; 80053; 81001; 85025; 99284; A9270-GY

== ENCOUNTER 2020-11-05 17:47 | Emergency (ER) | payer MEDICAID ==
[2020-11-05 18:06] VITALS: BP 148/90; PULSE 93; O2SAT 98
[2020-11-05] MEDS ORDERED: solu-MEDROL 125 MG IV ONE (18:15)
--- NOTE | 2020-11-05 18:30 | ERPHSYRPT ---
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 Patient ran out of her steroids 1 month ago. Patient is here for a Solu-Medrol injection. Patient complains of diffuse joint pain typical of her rheumatoid flareup. Symptoms have been ongoing for the past 3 to [address] Campos patient's primary care doctor. He advised to give patient a dose of Solu-Medrol 125 mg. He will call in patient's home steroids to patient's pharmacy. Patient voiced no other complaints or concerns. No chest pain or shortness of breath. No nausea vomiting or diaphoresis. Patient voices no other complaints at this time. Timing/Duration: day(s) Severity: moderate Modifying Factors: Improves With: movement Associated Symptoms: No nausea, No vomiting, No abdominal pain, No shortness of breath, No heartburn, No diaphoresis, No cough, No chills, No chest pain, No fever, No headaches, No loss of appetite, No malaise, No rash, No syncope Allergies/Adverse Reactions: No Known Drug Allergies Allergy (Verified 11/05/20 18:06) Home Medications: Amlodipine Besylate 10 mg PO DAILY 11/29/18 [History] Hydroxychloroquine Sulfate [Plaquenil] 200 mg PO DAILY 06/13/19 [History] Leflunomide 20 mg PO DAILY 06/13/19 [History] Atorvastatin Calcium 40 mg PO HS 07/16/20 [History] Carvedilol 12.5 mg [Coreg 12.5 mg] 12.5 mg PO BID 07/16/20 [History] Lisinopril 20 mg [Zestril 20 MG] 20 mg PO DAILY 07/16/20 [History] Lorazepam 0.5 mg [Ativan 0.5 MG] 0.5 mg PO Q6HPRN PRN 07/16/20 [History] Cyclobenzaprine HCl 5 mg PO TID 11/05/20 [History] Hx Tetanus, Diphtheria Vaccination/Date Given: Yes Hx Influenza Vaccination/Date Given: Yes Hx Pneumococcal Vaccination/Date Given: No Travel Risk - International Travel Have you traveled outside of the country in past 3 weeks: No - Coronavirus Screening Are you exhibiting any of the following symptoms?: No Close contact with a COVID-19 positive Pt in past 14-21 Days: No - Review of Systems Constitutional: No Symptoms, No Fever, No Chills Eyes: No Symptoms Ears, Nose, & Throat: No Symptoms Respiratory: No Symptoms, No Cough, No Dyspnea Cardiac: No Symptoms, No Chest Pain, No Edema, No Syncope Abdominal/Gastrointestinal: No Symptoms, No Abdominal Pain, No Nausea, No Vomiting, No Diarrhea Genitourinary Symptoms: No Symptoms, No Dysuria Musculoskeletal: No Symptoms, No Back Pain, No Neck Pain Skin: No Symptoms, No Rash Neurological: No Symptoms, No Dizziness, No Focal Weakness, No Sensory Changes Psychological: No Symptoms Endocrine: No Symptoms Hematologic/Lymphatic: No Symptoms Immunological/Allergic: No Symptoms All Other Systems: Reviewed and Negative - Past Medical History Pertinent Past Medical History: Yes Neurological History: Stroke, Other ENT History: No Pertinent History Cardiac History: Hypertension Respiratory History: No Pertinent History Endocrine Medical History: No Pertinent History Musculoskeletal History: Osteoporosis, Rheumatoid Arthritis GI Medical History: Gallbladder Disease History: No Pertinent History Psycho-Social History: Anxiety, Depression Female Reproductive Disorders: Abnormal Uterine Bleeding Other Medical History: LEFT EPIDURAL HEMATOMA HX. RA - Past Surgical History Past Surgical History: Yes Neuro Surgical History: Other Cardiac: No Pertinent History Respiratory: No Pertinent History Gastrointestinal: Cholecystectomy Genitourinary: No Pertinent History Musculoskeletal: No Pertinent History Female Surgical History: Hysterectomy Other Surgical History: BRAIN SURGERY - Social History Smoking Status: Current every day smoker How long have you smoked: years Exposure to second hand smoke: Yes Alcohol Use: Socially Drug Use: none Patient Lives Alone: No Significant Family History: no pertinent family hx - Female History Hx Now: No (hysterectomy) - Nursing Vital Signs Nursing Vital Signs: Initial Vital Signs Temperature 98.5 F 11/05/20 17:55 Pulse Rate 93 H 11/05/20 17:55 Blood Pressure 148/90 11/05/20 17:55 O2 Sat by Pulse Oximetry 98 11/05/20 17:55 Pain Scale Pain Intensity [Generalized] 10 Pain Intensity 10 - Physical Exam General Appearance: no apparent distress, alert Eye Exam: PERRL/EOMI, eyes nml inspection Ears, Nose, Throat Exam: normal ENT inspection, TMs normal, pharynx normal, moist mucous membranes Neck Exam: normal inspection, non-tender, supple, full range of motion Respiratory Exam: normal breath sounds, lungs clear, No respiratory distress Cardiovascular Exam: regular rate/rhythm, normal heart sounds, normal peripheral pulses Gastrointestinal/Abdomen Exam: soft, normal bowel sounds, No tenderness, No mass Back Exam: normal inspection, normal range of motion, No CVA tenderness, No vertebral tenderness Extremity Exam: normal inspection, normal range of motion, pelvis stable, other (Range of motion within normal limits however patient states her joints are tender and painful. This is typical of her rheumatoid arthritis flareup. 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 per patient.) Neurologic Exam: alert, oriented x 3, cooperative, normal mood/affect, nml cerebellar function, nml station & gait, sensation nml, No motor deficits Skin Exam: normal color, warm, dry, No rash Lymphatic Exam: No adenopathy SpO2: 98 - Course Nursing assessment & vital signs reviewed: Yes Ordered Tests: Medication Summary Discontinued Medications Generic Name Dose Route Start Last Admin Trade Name Freq PRN Reason Stop Dose Admin Methylprednisolone Sodium Succinate 125 mg 11/05/20 18:15 Solu-Medrol 125 Mg IV 11/05/20 18:16 STAT ONE - Progress Progress: improved Progress Note: 11/05/20 18:31 Patient reassessed. She feels well. Patient requests the Solu-Medrol to be injected IV. This was conveyed to the RN. Patient states she wants to be discharged right after the administration of the Solu-Medrol. She will try to picker and sorter load and unload her steroids prescription tonight. Patient voices no other complaints at this time. Patient requesting discharge. Will discharge per patient request. Discussed with : Annette Will see patient in: office Counseled pt/family regarding: diagnosis, need for follow-up - Departure Departure Disposition: Home Clinical Impression: Medication refill, Rheumatoid arthritis flare Condition: Stable Critical Care Time: No Referrals: YARELIS CAMPOS MD [Primary Care Provider] - Additional Instructions: Discharge/Care Plan BARBARA ERAZO was seen on 11/05/20 in the Emergency Room. The patient was counseled regarding Diagnosis,Lab results, Imaging studies, need for follow up and when to return to the Emergency Room. Prescriptions given: Discharge Note I have spoken with the patient and/or caregivers. I have explained the patient's condition, diagnosis and treatment plan based on the information available to me at this time. I have answered the patient's and/or caregiver's questions and addressed any concerns. The patient and/or caregivers have as good understanding of the patient's diagnosis, condition and treatment plan as can be expected at this point. The vital signs have been stable. The patient's condition is stable and appropriate for discharge from the emergency department. The patient will pursue further outpatient evaluation with the primary care physician or other designated or consulting physician as outlined in the discharge instructions. The patient and/or caregivers are agreeable to this plan of care and follow-up instructions have been explained in detail. The patient and/or caregivers have received these instruction. The patient/and or caregivers are aware that any significant change in condition or worsening of symptoms should prompt an immediate return to this or the closest emergency department or call 911.
[2020-11-05] MEDS ORDERED: solu-MEDROL 125 MG ONE (18:31)
== END 2020-11-05 18:41 | disposition home or self-care (01) ==
LOC: ED 17:47
DX: M06.9 Rheumatoid arthritis, unspecified (principal); Z79.899 Other long term (current) drug therapy
CPT/HCPCS: 96374; 99283; J2930

== ENCOUNTER 2021-06-10 21:06 | Emergency (ER) | payer MEDICAID, OTHER ==
--- NOTE | 2021-06-10 22:03 | ERPHSYRPT ---
- History of Present Illness Source: patient Physician History: She is a 51-year-old female presents to our emergency department with complaints of right arm and right chest wall pain. Patient states that she was in her bathroom when she slipped. Patient states her friend attempted to help her stand by lifting on her shoulder and patient felt a pulling sensation on her arm and shoulder and right chest. This was followed by pain. Patient has pain to her right arm shoulder her chest when she moves and when she presses on her deltoid muscle. No loss of consciousness. No neck pain. Cervical spine cleared clinically. The fall was a mechanical slip and not associated with any sort of neuro or vascular symptomology. Timing/Duration: today Severity: mild Modifying Factors: Improves With: nothing Associated Symptoms: denies symptoms Allergies/Adverse Reactions: No Known Drug Allergies Allergy (Verified 11/05/20 18:06) Home Medications: Amlodipine Besylate 10 mg PO DAILY 11/29/18 [History] Hydroxychloroquine Sulfate [Plaquenil] 200 mg PO DAILY 06/13/19 [History] Leflunomide 20 mg PO DAILY 06/13/19 [History] Atorvastatin Calcium 40 mg PO HS 07/16/20 [History] Carvedilol 12.5 mg [Coreg 12.5 mg] 12.5 mg PO BID 07/16/20 [History] Lisinopril 20 mg [Zestril 20 MG] 20 mg PO DAILY 07/16/20 [History] Lorazepam 0.5 mg [Ativan 0.5 MG] 0.5 mg PO Q6HPRN PRN 07/16/20 [History] Cyclobenzaprine HCl 5 mg PO TID 11/05/20 [History] Hx Tetanus, Diphtheria Vaccination/Date Given: Yes Hx Influenza Vaccination/Date Given: Yes Hx Pneumococcal Vaccination/Date Given: No - Review of Systems Constitutional: No Symptoms, No Fever, No Chills Eyes: No Symptoms Ears, Nose, & Throat: No Symptoms Respiratory: No Symptoms, No Cough, No Dyspnea Cardiac: No Symptoms, No Chest Pain, No Edema, No Syncope Abdominal/Gastrointestinal: No Symptoms, No Abdominal Pain, No Nausea, No Vomiting, No Diarrhea Genitourinary Symptoms: No Symptoms, No Dysuria Musculoskeletal: No Symptoms, No Back Pain, No Neck Pain Skin: No Symptoms, No Rash Neurological: No Symptoms, No Dizziness, No Focal Weakness, No Sensory Changes Psychological: No Symptoms Endocrine: No Symptoms Hematologic/Lymphatic: No Symptoms Immunological/Allergic: No Symptoms All Other Systems: Reviewed and Negative - Past Medical History Pertinent Past Medical History: Yes Neurological History: Stroke, Other ENT History: No Pertinent History Cardiac History: Hypertension Respiratory History: No Pertinent History Endocrine Medical History: No Pertinent History Musculoskeletal History: Osteoporosis, Rheumatoid Arthritis GI Medical History: Gallbladder Disease History: No Pertinent History Psycho-Social History: Anxiety, Depression Female Reproductive Disorders: Abnormal Uterine Bleeding Other Medical History: LEFT EPIDURAL HEMATOMA HX. RA - Past Surgical History Past Surgical History: Yes Neuro Surgical History: Other Cardiac: No Pertinent History Respiratory: No Pertinent History Gastrointestinal: Cholecystectomy Genitourinary: No Pertinent History Musculoskeletal: No Pertinent History Female Surgical History: Hysterectomy Other Surgical History: BRAIN SURGERY - Social History Smoking Status: Current every day smoker How long have you smoked: years Exposure to second hand smoke: Yes Alcohol Use: Socially Drug Use: none Patient Lives Alone: No Significant Family History: no pertinent family hx - Nursing Vital Signs Nursing Vital Signs: Initial Vital Signs Temperature 98.3 F 06/10/21 21:15 Pulse Rate 97 H 06/10/21 21:15 Respiratory Rate 18 06/10/21 21:15 Blood Pressure 152/89 06/10/21 21:15 O2 Sat by Pulse Oximetry 98 06/10/21 21:15 Pain Scale Pain Intensity 7 - Physical Exam General Appearance: no apparent distress, alert Eye Exam: PERRL/EOMI, eyes nml inspection Ears, Nose, Throat Exam: normal ENT inspection, TMs normal, pharynx normal, moist mucous membranes Neck Exam: normal inspection, non-tender, supple, full range of motion Respiratory Exam: normal breath sounds, lungs clear, No respiratory distress Cardiovascular Exam: regular rate/rhythm, normal heart sounds, normal peripheral pulses Gastrointestinal/Abdomen Exam: soft, normal bowel sounds, No tenderness, No mass Back Exam: normal inspection, normal range of motion, No CVA tenderness, No vertebral tenderness Extremity Exam: normal inspection, normal range of motion, pelvis stable, other (Pain reproduced by palpation to anterior deltoid, anterior chest wall and right rib area. Overlying soft tissue intact. No signs of trauma.) Neurologic Exam: alert, oriented x 3, cooperative, normal mood/affect, nml cerebellar function, nml station & gait, sensation nml, No motor deficits Skin Exam: normal color, warm, dry, No rash Lymphatic Exam: No adenopathy SpO2 Interpretation: normal O2 Delivery: Room Air - Course Nursing assessment & vital signs reviewed: Yes EKG Interpreted by Me: RATE (93), Sinus Rhythm, NORMAL AXIS, NORMAL INTERVALS - Radiology Exams Ribs X-ray Interpretation: Interpreted by me (No fractures dislocations. No soft tissue abnormalities.) Chest X-ray Interpretation: Interpreted by me (Lung chandra. Normal cardiac silhouette. Intact bony thorax.) Ordered Tests: Active Orders 24 hr Category Date Time Status EKG-ER Only STAT Care 06/10/21 21:55 Active CHEST 1 VIEW (PORTABLE) Stat Exams 06/10/21 23:23 Taken RIBS UNILATERAL Stat Exams 06/10/21 21:52 Taken Medication Summary Discontinued Medications Generic Name Dose Route Start Last Admin Trade Name Freq PRN Reason Stop Dose Admin Ketorolac Tromethamine 30 mg 06/10/21 22:40 06/10/21 23:51 Toradol 30 Mg Injection IV 06/10/21 22:41 30 mg STAT ONE Administration Ketorolac Tromethamine Confirm 06/10/21 23:49 Toradol 30 Mg Injection Administered 06/10/21 23:50 Dose 30 mg .ROUTE .STK-MED ONE - Progress Progress: improved Progress Note: Patient reassessed. EKG normal sinus rhythm. Pain improved. X-ray negative for fracture dislocation. Lung chandra are clear. Patient is ready for discharge. Vitasl within normal limits. Patient voices no other complaints or concerns at this time. 06/11/21 00:17 Counseled pt/family regarding: diagnosis, need for follow-up, rad results - Departure Departure Disposition: Home Clinical Impression: Muscle strain, Shoulder strain, Strain of chest wall Condition: Stable Critical Care Time: No Referrals: MARSHALL HUERTA [Primary Care Provider] - Additional Instructions: Discharge/Care Plan BARBARA ERAZO BAM was seen on 06/11/21 in the Emergency Room. The patient was counseled regarding Diagnosis,Lab results, Imaging studies, need for follow up and when to return to the Emergency Room. Prescriptions given: Discharge Note I have spoken with the patient and/or caregivers. I have explained the patient's condition, diagnosis and treatment plan based on the information available to me at this time. I have answered the patient's and/or caregiver's questions and addressed any concerns. The patient and/or caregivers have as good understanding of the patient's diagnosis, condition and treatment plan as can be expected at this point. The vital signs have been stable. The patient's condition is stable and appropriate for discharge from the emergency department. The patient will pursue further outpatient evaluation with the primary care physician or other designated or consulting physician as outlined in the discharge instructions. The patient and/or caregivers are agreeable to this plan of care and follow-up instructions have been explained in detail. The patient and/or caregivers have received these instruction. The patient/and or caregivers are aware that any significant change in condition or worsening of symptoms should prompt an immediate return to this or the closest emergency department or call 911.
[2021-06-10] MEDS ORDERED: TORAdol 30 mg Injection IV ONE (22:40)
[2021-06-10] MEDS ORDERED: TORAdol 30 mg Injection ONE (23:49)
[2021-06-11 00:49] VITALS: BP 136/89; PULSE 90; O2SAT 98
--- NOTE | 2021-06-11 16:44 | XRAY ---
Exam: Five-view right rib series from 06/11/2021. Comparison: None. Indication: Patient fell; complains of pain under right breast area. Findings: Visualization of the 11th and 12th ribs is limited. The mechanical engineering technologist states the patient had limited movement. She obtained the best images that were possible at the time. I note moderate transverse subsegmental atelectasis at the right lung base. There is no pneumothorax or pleural effusion. I do not see any obvious fracture within the right rib cage, although assessment of the 11th and 12th ribs is limited. A small calcified granuloma seen at the lateral right lung base. There is a 3 cm x 1.8 cm sclerotic density along the right margin of the thoracic inlet which I believe probably represents a calcified lymph node. Advanced degenerative changes are seen within the visualized lower cervical spine. There is mild convexity of the lower thoracic spine toward the right centered at T11-T12. This is consistent with mild scoliosis. Surgical clips consistent with prior cholecystectomy are seen within the right upper quadrant. Impression: 1. I see no obvious right-sided rib fracture, although assessment of the 11th and 12th ribs is limited. Correlate clinically. 2. Moderate, transversely oriented subsegmental atelectasis is seen at the right lung base. 3. No right-sided pneumothorax or pleural effusion is seen.
--- NOTE | 2021-06-11 16:47 | XRAY ---
Exam: AP portable chest film from 06/10/2021. Comparison: Two-view chest from 10/20/2018. Indication: Pain under right breast area following a fall. Findings: The chemical engineering technologist stated that the patient had limited movement, and she obtain the best image possible under the circumstances. Some grid line artifact is seen. There is an avulsion fracture of the greater tuberosity of the proximal left humerus with at least 6.7 mm lateral displacement. This is new from 10/20/2018 and may be acute. Correlate clinically. Some grid lines are seen. The transverse heart size appears towards the upper limits of normal representing no change. Transversely oriented subsegmental atelectasis is seen at the right lung base as well as a small calcified granuloma. No other obvious fracture is seen. The remainder of the lung chandra appears clear. Pulmonary vascularity is normal. There is no pneumothorax or pleural effusion. A calcified density seen just to the right of the cervical-thoracic junction which may represent a calcified lymph node, no change from 10/20/2018. Pronounced degenerative changes are seen within the visualized lower cervical spine. Impression: 1. There appears to be a vertically oriented avulsion fracture at the lateral aspect of the left humeral head with mild 6.7 mm lateral displacement. This appears acute. I called this report to the emergency room nurse at approximately 4:35 PM on 06/11/2021. 2. Moderate plate atelectasis is seen at the right lung base. 3. No other acute cardiopulmonary disease is seen.
== END 2021-06-11 00:50 | disposition home or self-care (01) ==
LOC: ED 21:06
DX: S46.911A Strain of unspecified muscle, fascia and tendon at shoulder and upper arm level, right arm, initial encounter (principal); S29.011A Strain of muscle and tendon of front wall of thorax, initial encounter; R07.89 Other chest pain; M79.601 Pain in right arm; W01.0XXA Fall on same level from slipping, tripping and stumbling without subsequent striking against object, initial encounter; Y92.002 Bathroom of unspecified non-institutional (private) residence as the place of occurrence of the external cause; Z79.899 Other long term (current) drug therapy
CPT/HCPCS: 71045; 71100; 93005; 96372; 99284; J1885